=== PATIENT | male | born 1930 | race Caucasian/White ===

== ENCOUNTER 2019-08-20 12:46 | Inpatient (IN) | payer MEDICARE ==
[2019-08-20] MEDS ORDERED: methylPREDNISolone Sod Succ/PF 125 MG/2 ML VIAL ONE (13:04)
[2019-08-20] MEDS ORDERED: Albuterol Sulfate 2.5 mg/0.5 ml Neb ONE ×2 (13:08)
[2019-08-20 13:19] LABS: #Lymphocytes 0.6 thou/uL (1.20-3.40); #Monocytes 0.6 thou/uL (0.11-0.59); #Neutrophils 4.7 thou/uL (1.40-6.50); %Basophils 0.2 % (0.0-1.0); %Eosinophils 0.2 % (0.0-10.0); %Lymphocytes 10.5 % (21.0-51.0); %Monocytes 9.4 % (0.0-10.0); %Neutrophils 79.6 % (42.0-75.0); Hemoglobin 10.7 g/dL (14.0-18.0); Mean Corpuscular HGB CONC 34.3 g/dL (32.0-36.0); Mean Corpuscular Hemoglobin 35.7 pg (27.0-31.0); Mean Platelet Volume 6.2 fL (7.4-10.4); Platelet Count 175 thou/uL (130-400); RBC Distribution Width 13.2 % (11.5-14.5); White Blood Cell (WBC) Count 5.9 thou/uL (4.8-10.8)
--- NOTE | 2019-08-20 13:31 | RAD ---
XR Chest 1 View Portable History: Dyspnea Comparison: Radiograph February 2017 Findings: Heart size is enlarged. There are airspace opacities in the right middle lobe and right low er lobe. No pneumothorax. Impression: Findings concerning for multifocal right lower lobe pneumonia.
[2019-08-20 13:34] LABS: ALT (SGPT) 48 U/L (8-55); AST (SGOT) 45 U/L (5-34); Albumin 3.8 g/dL (3.4-4.8); Alkaline Phosphatase 91 U/L (40-110); Anion Gap 16 mmol/L (10-20); BUN (Urea Nitrogen) 38 mg/dL (8.4-25.7); Bilirubin, Total 1.2 mg/dL (0.2-1.2); Calc. Creatinine Clearance 0 mL/min (70-130); Calcium 8.8 mg/dL (7.8-10.44); Carbon Dioxide 23 mmol/L (23-31); Chloride 100 mmol/L (98-107); Estimated GFR-MDRD 28; Globulin 2.8 g/dL (2.4-3.5); Glucose 108 mg/dL (83-110); Potassium 4.7 mmol/L (3.5-5.1); Protein, Total 6.6 g/dL (5.8-8.1); Sodium 134 mmol/L (136-145)
[2019-08-20] MEDS ORDERED: cefTRIAXone\\ROCEPHIN 2 GM VIAL ONE (13:40)
[2019-08-20] MEDS ORDERED: Sodium Chloride 0.9% 100 ML ONE (13:40)
[2019-08-20] MEDS ORDERED: Azithromycin 500 MG VIAL ONE (13:52)
[2019-08-20 14:01] LABS: CKMB 2.6 ng/mL (0-6.6)
[2019-08-20] MEDS ORDERED: Bisacodyl 10 MG SUPP PR PRN (14:56)
[2019-08-20] MEDS ORDERED: Acetaminophen 325 MG TAB PO PRN (14:56)
[2019-08-20] MEDS ORDERED: Acetaminophen 500 MG TAB ONE (15:26)
--- NOTE | 2019-08-20 15:30 | HP ---
REASON FOR ADMISSION: COPD exacerbation, pneumonia, acute kidney injury, possible CHF exacerbation. HISTORY OF PRESENTING ILLNESS: The patient gives history of shortness of breath from last 3 days. This has been progressively getting worse. Around 4:00 in the morning, it got to the point where he could not tolerate, hence called EMS and was brought here. He has cough with expectoration of yellowish green sputum. He normally ambulates by himself. He does all his activities of daily living and takes care of his in [place]. He follows up with radiographer mammographer in [facility]. His primary care physician is Dr. Gomez in [facility] in [place]. He normally takes two nebulizations and does not use home oxygen. No fever at home, but had a temperature of 99.5 here. No prior history of heart failure as far as he knows. 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 CURRENT MEDICATIONS: The patient is on, 1. DuoNebs twice daily. 2. Omeprazole 40 mg daily. 3. Propranolol 20 mg 3 times daily. 4. Synthroid 150 mcg p.o. daily. 5. Probiotic one capsule daily. 6. Plaquenil 200 mg daily. 7. Vitamin D3 2000 units p.o. daily. 8. Atorvastatin 80 mg p.o. at bedtime. 9. Aspirin 81 mg p.o. at bedtime. 10. Norvasc 10 mg p.o. daily. 11. Allopurinol 100 mg p.o. daily. 12. Albuterol inhaler q.6 hourly p.r.n. ALLERGIES: NO KNOWN DRUG ALLERGIES. PERSONAL HISTORY: Quit smoking more than 20 years ago, but has smoked 1 to 2 packs a day for almost 40 years before that. Does not abuse alcohol or drugs. Lives with his in [place]. FAMILY HISTORY: Mother at the age of 71 years. She has had history of breast cancer and also female cancer as far as he knows. Father at the age of 86 years. He of natural causes. CODE STATUS: The patient wants one time CPR to be done on him including intubation. Power of pharmacy innovation assistant is his son, Mr. Kike Stephen. REVIEW OF SYSTEMS: CONSTITUTIONAL: Negative for weight loss or gain, ability to conduct usual activities. SKIN: Negative for rash, itching. EYES: Negative for double vision, pain. ENT/MOUTH: Negative for nose bleeding, neck stiffness, pain, tenderness. CARDIOVASCULAR: Negative for palpitations, dyspnea on exertion, orthopnea. RESPIRATORY: Negative for shortness of breath, wheezing, cough, hemoptysis, fever or night sweats. GASTROINTESTINAL: Negative for poor appetite, abdominal pain, heartburn, nausea , vomiting, constipation, or diarrhea. GENITOURINARY: Negative for urgency, frequency, dysuria, nocturia. MUSCULOSKELETAL: Negative for pain, swelling. NEUROLOGIC/PSYCHIATRIC: Negative for anxiety, depression. ALLERGY/IMMUNOLOGIC: Negative for skin rash, bleeding tendency. PHYSICAL EXAMINATION: GENERAL: The patient is an 88-year-old male, who is currently not in any acute distress. VITAL SIGNS: Blood pressure 124/66, pulse 84 per minute, respiratory rate 20 per minute, temperature 99.5 degrees Fahrenheit, saturating 86% on 2 L and 92% on 4 L nasal cannula. NECK: Supple. No elevated JVD. HEENT: Eyes, extraocular muscles intact. Pupils are reacting to light. Oral cavity, mucous membranes are dry. No exudates or congestion. CARDIOVASCULAR SYSTEM: S1 and S2 heard. Regular rhythm. RESPIRATORY: Air entry 1+ bilateral. Scattered wheezes plus bilateral. ABDOMEN: Soft. Bowel sounds heard. No tenderness, rigidity, or guarding. EXTREMITIES: No peripheral edema or calf tenderness. VASCULAR SYSTEM: Peripheral pulses 1+ bilateral. No ischemic ulcerations or gangrene. CENTRAL NERVOUS SYSTEM: No gross focal deficits noted. The patient is alert, awake, and oriented well. PSYCHIATRIC SYSTEM: The patient's mood is euthymic. No hallucinations or delusions. LABORATORY DATA: EKG done shows normal sinus rhythm at 83 beats per minute. There is LBBB seen. Corrected QT is 533 milliseconds. QRS duration is 184 milliseconds. Chest x-ray done shows patchy right-sided infiltrate. He likely has biventricular pacer. White count of 5, H and H 10 and 31, platelet count 175, MCV is 104 with 79% neutrophils. D-dimer is 2.3. Sodium 134, BUN 38, creatinine 2.2, serum bicarb 23. Troponin I 0.3. BNP is 1079. CK-MB 2.6. Influenza A and B antigens are negative. Albumin is 3.8. CLINICAL IMPRESSION AND PLAN: The patient will be admitted to telemetry for acute on chronic COPD exacerbation, acute respiratory failure with hypoxia, possible congestive heart failure exacerbation with right heart failure. The patient has prior history of right nephrectomy and his creatinine is around 2. We will place him on ceftriaxone and Zithromax. Echo with 2D Doppler for LV function. We will continue aspirin, allopurinol, Plaquenil, omeprazole, propranolol, as before along with Synthroid. He will be on steroids and DuoNebs. We will obtain Cardiology consultation with Dr. Uribe. If the patient's clinical situation gets worse , we will request Pulmonology consultation as well. We will continue to closely monitor him on telemetry. Job ID: [id number] [facility]
[2019-08-20 16:20] LABS: Troponin I 0.392 ng/mL (< 0.028)
[2019-08-20] MEDS: Propranolol HCl 20 MG TAB PO SCH ×2 (16:35→20:15)
[2019-08-20 18:08] VITALS: BMI 25.8
[2019-08-20 19:48] LABS: Critical Call Chem Troponin I RESULT DECREASING
[2019-08-20] MEDS: Atorvastatin Calcium 40 MG TAB PO SCH (20:15)
[2019-08-20] MEDS: methylPREDNISolone Sod Succ 40 MG VIAL IVP SCH (21:21)
[2019-08-21 04:56] LABS: #Lymphocytes 0.7 thou/uL (1.20-3.40); #Monocytes 0.2 thou/uL (0.11-0.59); #Neutrophils 3.2 thou/uL (1.40-6.50); %Eosinophils 0.2 % (0.0-10.0); %Lymphocytes 16.6 % (21.0-51.0); %Monocytes 4.9 % (0.0-10.0); %Neutrophils 78.4 % (42.0-75.0); Hemoglobin 10.1 g/dL (14.0-18.0); Mean Corpuscular HGB CONC 33.2 g/dL (32.0-36.0); Mean Corpuscular Hemoglobin 34.6 pg (27.0-31.0); Mean Platelet Volume 6.6 fL (7.4-10.4); Platelet Count 162 thou/uL (130-400); RBC Distribution Width 13.1 % (11.5-14.5); Red Blood Cell (RBC) Count 2.92 mill/uL (4.70-6.10); White Blood Cell (WBC) Count 4.1 thou/uL (4.8-10.8)
[2019-08-21 05:22] LABS: Albumin 3.5 g/dL (3.4-4.8); Anion Gap 14 mmol/L (10-20); BUN (Urea Nitrogen) 44 mg/dL (8.4-25.7); BUN/Creatinine Ratio 21.46; Calc. Creatinine Clearance 29 mL/min (70-130); Calcium 8.6 mg/dL (7.8-10.44); Carbon Dioxide 24 mmol/L (23-31); Chloride 104 mmol/L (98-107); Estimated GFR-MDRD 31; Glucose 171 mg/dL (83-110); Phosphorus 4.4 mg/dL (2.3-4.7); Potassium 4.2 mmol/L (3.5-5.1); Sodium 138 mmol/L (136-145)
[2019-08-21] MEDS: methylPREDNISolone Sod Succ 40 MG VIAL IVP SCH ×3 (05:45→23:34)
[2019-08-21] MEDS: Levothyroxine 150 MCG TAB PO SCH (05:45)
[2019-08-21] MEDS: Hydroxychloroquine Sulfate 200 MG TAB PO SCH (08:34)
[2019-08-21] MEDS: Allopurinol 100 MG TAB PO SCH (08:34)
[2019-08-21] MEDS: Enoxaparin Sodium 30 MG/0.3 ML SYRINGE SC SCH (08:34)
[2019-08-21] MEDS: Aspirin 81 mg Enteric Coated Tablet PO SCH (08:35)
[2019-08-21] MEDS: Propranolol HCl 20 MG TAB PO SCH (08:35)
[2019-08-21] MEDS ORDERED: Non-Formulary Item 1 EACH (Omeprazole [Omeprazole] 40 MG) PO SCH (09:00)
--- NOTE | 2019-08-21 09:14 | PRG ---
DATE OF SERVICE: 08/21/2019 SUBJECTIVE: The patient seen at bedside. He is feeling better than before, admitted with shortness of breath and left-sided chest pain, off and on. As per the patient, he was using oxygen at home, but from last 1 year, has been removed from oxygen. Has a known case of COPD. Denies any heart history other than aneurysm repair. As per the patient, currently, he feels better. Has wheezing. Denies headache or dizziness. Denies any swelling of the feet. Denies nausea or vomiting. OBJECTIVE: VITAL SIGNS: Oxygen saturation 93% on 3 L nasal cannula, blood pressure 113/60, temperature 97.6, pulse 71, respirations 18. GENERAL: The patient lying in bed comfortably, not in any distress. HEENT: Conjunctivae are normal. CHEST: Vesicular breathing, prolonged expiration. Bilateral rhonchi present. Decreased air entry in right lower lung field. HEART: Sounds normal. ABDOMEN: Soft, benign. No tenderness or visceromegaly. EXTREMITIES: Negative edema of feet. No rash. No cyanosis. LABORATORY DATA: CBC unremarkable except hemoglobin 10.1. D-dimer 2.30. BMP unremarkable except creatinine 2.05. Troponin 0.331, 0.392, 0.370. CK-MB 226. Lactic acid 1.3. ProBNP 1079. Blood culture pending. Influenza A and B antigen negative. IMPRESSION: 1. Acute on chronic hypoxemic respiratory failure secondary to chronic obstructive pulmonary disease exacerbation and right lower lung pneumonia, possible acute congestive heart failure. Continue steroids, nebulization, antibiotics. Azithromycin is discontinued due to prolonged QTc, which is 598. The patient currently feeling better. We will continue oxygen and wean as tolerated. Follow up blood culture, currently negative. 2. Right lower lung pneumonia. Continue ceftriaxone. Azithromycin is discontinued due to prolonged QTc. The patient has normal white blood cells. Continue to monitor clinically. 3. Possible acute congestive heart failure. No previous echo in the system. Cardiology has been consulted. The patient currently has no edema of feet. We will follow up Cardiology if the patient needed any diuretics. 4. Positive troponins, possible demand supply mismatch. The patient has intermittent chest pains, also questionable ST-T depression in lateral leads. Follow up Cardiology for further recommendation. 5. Acute kidney injury with baseline chronic kidney disease stage 3. Monitor BMP in the morning. 6. History of aortic aneurysm repair. 7. Deep venous thrombosis and gastrointestinal prophylaxis. PLAN: Discussed with the patient and nursing staff. Job ID: [id number]
--- NOTE | 2019-08-21 10:18 | NM ---
VQ SCAN: CLINICAL HISTORY: Elevated D-dimer. RADIOPHARMACEUTICAL: 11.5 mCi xenon inhaled, 5.5 mCi technetium 99 MAA IV. COMPARISON: Reference made to previous day's chest radiograph. FINDINGS: The ventilation portion of the exam reveals homogeneous distribution without significant retention. N o significant moderate or large perfusion defects are demonstrated. IMPRESSION: 1. Normal VQ scan. 2. No scintigraphic evidence of pulmonary embolus. Transcribed Date/Time: 08/21/2019 10:27 AM
[2019-08-21] MEDS: cefTRIAXone\\ROCEPHIN 1 GM in Sodium Chloride 0.9% 100 ML IVPB SCH (12:15)
[2019-08-21] MEDS ORDERED: Furosemide 20 MG/2 ML VIAL SLOW IVP SCH (13:45)
[2019-08-21] MEDS ORDERED: Azithromycin 500 MG in Sodium Chloride 0.9% 250 ML 250 ML IVPB SCH (14:00)
[2019-08-21] MEDS: hydrALAZINE 10 MG TAB PO SCH ×2 (14:11→19:57)
--- NOTE | 2019-08-21 14:55 | CON ---
DATE OF CONSULTATION: HISTORY OF PRESENT ILLNESS: The patient is an unfortunate 88-year-old gentleman , who presents for evaluation of dyspnea. The patient has no previous cardiac history. He does have a history of an abdominal aortic aneurysm, underwent surgery. The patient presents with increasing dyspnea. He reports having chills. He was admitted for further evaluation. The patient reports having also intermittent left-sided chest discomfort. He says that with this, it is worse when he takes a deep breath and tender to palpation. PAST MEDICAL HISTORY: 1. History of pneumonia. 2. Aortic aneurysm. 3. Hypertension. 4. Chronic renal insufficiency. 5. COPD. 6. Dyslipidemia. PAST SURGICAL HISTORY: Nephrectomy, abdominal aortic aneurysm surgery, back surgery, prostate surgery, and neck surgery. SOCIAL HISTORY: He is a former smoker. FAMILY HISTORY: Positive family history of heart disease. ALLERGIES: NO KNOWN DRUG ALLERGIES. MEDICATIONS: See nursing list. REVIEW OF SYSTEMS: Ten-point system otherwise unremarkable. PHYSICAL EXAMINATION: GENERAL: This is a well-developed gentleman, in mild distress. VITAL SIGNS: Blood pressure 105/56. NECK: Showed no jugular venous distention. LUNGS: Have wheezes in both bases, bilateral wheezes. HEART: Regular rate and rhythm. Normal S1 and S2 with a 2/6 systolic murmur. ABDOMEN: Distended. EXTREMITIES: Showed no edema. VASCULAR: Radial pulses 2+. LABORATORY DATA: Sodium 138, potassium 4.2, chloride 104, bicarbonate 24, BUN 44, and creatinine 2.0. His white blood cell count is 4.1, hemoglobin 10.1, hematocrit 30.4, and his platelets are 162. His troponin was 0.37. His BNP was 1079. There is no EKG on the chart, we will order an EKG. Chest x-ray revealed cardiomegaly with a possible right-sided infiltrate, right lower lobe infiltrate. Echocardiogram revealed severe decreased left ventricular ejection fraction of 25% to 30%, with severe mitral regurgitation. IMPRESSION AND PLAN: 1. Congestive heart failure. 2. Cardiomyopathy. 3. History of aortic aneurysm. 4. Chronic renal insufficiency. 5. History of nephrectomy. 6. Hypertension. 7. Dyslipidemia. This unfortunate gentleman, presents with congestive heart failure and possible pneumonia with his advanced age and history of nephrectomy with chronic renal insufficiency, we would recommend medical therapy. We will add hydralazine. We will try the low-dose Coreg to see if the patient can tolerate this medication instead of propranolol. We will add hydralazine. We will perform a Lexiscan stress test to make sure there is no evidence of significant ischemia. We will follow this patient with you through his hospitalization. Job ID: [id number] [facility]
[2019-08-21] MEDS: Carvedilol 3.125 MG TAB PO SCH (16:18)
[2019-08-21] MEDS: Gabapentin 300 MG CAP PO SCH (19:56)
[2019-08-21] MEDS: Atorvastatin Calcium 40 MG TAB PO SCH (19:57)
[2019-08-22] MEDS: Levothyroxine 150 MCG TAB PO SCH (04:50)
[2019-08-22 04:59] LABS: #Lymphocytes 0.7 thou/uL (1.20-3.40); #Monocytes 0.3 thou/uL (0.11-0.59); #Neutrophils 8.6 thou/uL (1.40-6.50); %Basophils 0.1 % (0.0-1.0); %Eosinophils 0.2 % (0.0-10.0); %Lymphocytes 7.5 % (21.0-51.0); %Monocytes 3.3 % (0.0-10.0); %Neutrophils 88.9 % (42.0-75.0); Hemoglobin 10.6 g/dL (14.0-18.0); Mean Corpuscular HGB CONC 33.1 g/dL (32.0-36.0); Mean Corpuscular Hemoglobin 34.7 pg (27.0-31.0); Mean Platelet Volume 6.7 fL (7.4-10.4); Platelet Count 165 thou/uL (130-400); RBC Distribution Width 13.2 % (11.5-14.5); Red Blood Cell (RBC) Count 3.04 mill/uL (4.70-6.10); White Blood Cell (WBC) Count 9.7 thou/uL (4.8-10.8)
[2019-08-22] MEDS ORDERED: Lidocaine 2% Viscous Solution 10 ML, Aluminum & Magnesium Hydroxide 30 ML SSW SCH (05:00)
[2019-08-22 05:16] LABS: ALT (SGPT) 120 U/L (8-55); AST (SGOT) 113 U/L (5-34); Albumin 3.5 g/dL (3.4-4.8); Alkaline Phosphatase 107 U/L (40-110); Anion Gap 16 mmol/L (10-20); BUN (Urea Nitrogen) 49 mg/dL (8.4-25.7); Bilirubin, Total 0.5 mg/dL (0.2-1.2); Calc. Creatinine Clearance 28 mL/min (70-130); Calcium 8.5 mg/dL (7.8-10.44); Carbon Dioxide 19 mmol/L (23-31); Chloride 106 mmol/L (98-107); Estimated GFR-MDRD 32; Globulin 2.7 g/dL (2.4-3.5); Glucose 179 mg/dL (83-110); Potassium 4.4 mmol/L (3.5-5.1); Protein, Total 6.2 g/dL (5.8-8.1); Sodium 137 mmol/L (136-145)
[2019-08-22] MEDS: methylPREDNISolone Sod Succ 40 MG VIAL IVP SCH ×3 (06:24→21:18)
[2019-08-22] MEDS: hydrALAZINE 10 MG TAB PO SCH ×3 (08:33→21:17)
[2019-08-22] MEDS: Aspirin 81 mg Enteric Coated Tablet PO SCH (08:33)
[2019-08-22] MEDS: Gabapentin 300 MG CAP PO SCH ×2 (08:34→21:17)
[2019-08-22] MEDS: Allopurinol 100 MG TAB PO SCH (08:34)
[2019-08-22] MEDS: Carvedilol 3.125 MG TAB PO SCH ×2 (08:35→18:05)
[2019-08-22] MEDS: Hydroxychloroquine Sulfate 200 MG TAB PO SCH (08:35)
[2019-08-22] MEDS: Enoxaparin Sodium 30 MG/0.3 ML SYRINGE SC SCH (08:43)
[2019-08-22] MEDS ORDERED: Sodium Chloride 0.9% 10 ML ONE (12:44)
[2019-08-22] MEDS: cefTRIAXone\\ROCEPHIN 1 GM in Sodium Chloride 0.9% 100 ML IVPB SCH (12:57)
[2019-08-22] MEDS: Isosorbide Dinitrate 5 MG TAB PO SCH ×2 (16:30→21:18)
[2019-08-22] MEDS: Senokot S 8.6-50 MG TAB PO PRN (18:25)
--- NOTE | 2019-08-22 18:41 | PDOC.HOSPP ---
- Subjective Encounter Date: 08/22/19 Encounter Time: 10:30 Subjective: pt up in bed feels well today - Objective Vital Signs & Weight: Vital Signs (12 hours) Temp Pulse Resp BP BP Pulse Ox 08/22/19 16:29 81 119/62 08/22/19 16:00 97.4 F L 81 18 109/57 L 96 08/22/19 14:28 75 16 08/22/19 11:44 97.8 F 75 15 138/63 96 08/22/19 10:58 74 16 08/22/19 08:33 72 120/60 08/22/19 08:00 98.4 F 72 18 120/60 97 08/22/19 07:35 96 08/22/19 07:32 69 16 96 Weight Weight 164 lb 11.2 oz I&O: 08/21/19 08/22/19 08/23/19 06:59 06:59 06:59 Intake Total 1310 1320 Output Total 2150 850 Balance -840 470 Result Diagrams: 08/22/19 04:43 08/22/19 04:43 Hospitalist ROS - Review of Systems Cardiovascular: denies: chest pain, palpitations, orthopnea, paroxysmal noc. dyspnea, edema, light headedness, other Gastrointestinal: denies: nausea, vomiting, abdominal pain, diarrhea, constipation, melena, hematochezia, other Genitourinary: denies: dysuria, frequency, incontinence, hematuria, retention, other - Medication Medications: Active Medications Generic Name Dose Route Start Last Admin Trade Name Freq PRN Reason Stop Dose Admin Albuterol/Ipratropium 3 ml 08/20/19 15:00 08/22/19 14:28 Duoneb NEB 3 ml [id number] LEO Administration Allopurinol 100 mg 08/21/19 09:00 08/22/19 08:34 Zyloprim PO 100 mg DAILY LEO Administration Aspirin 81 mg 08/21/19 09:00 08/22/19 08:33 Ecotrin PO 81 mg DAILY LEO Administration Atorvastatin Calcium 80 mg 08/20/19 21:00 08/21/19 19:57 Lipitor PO 80 mg HS LEO Administration Carvedilol 3.125 mg 08/22/19 17:00 08/22/19 18:05 Coreg PO 3.125 mg BID-WM LEO Administration Cholecalciferol 2,000 units 08/21/19 09:00 08/22/19 08:35 Vitamin D3 PO 2,000 units DAILY [facility] Administration Enoxaparin Sodium 30 mg 08/21/19 09:00 08/22/19 08:43 Lovenox SC 30 mg 0900 LEO Administration Gabapentin 600 mg 08/21/19 21:00 08/22/19 08:34 Neurontin PO 600 mg BID LEO Administration Hydralazine HCl 10 mg 08/21/19 15:00 08/22/19 16:29 Apresoline PO 10 mg TID LEO Administration Hydroxychloroquine Sulfate 200 mg 08/21/19 09:00 08/22/19 08:35 Plaquenil PO 200 mg DAILY [facility] Administration Ceftriaxone Sodium 1 gm/ 100 mls @ 200 mls/hr 08/21/19 13:00 08/22/19 12:57 Sodium Chloride IVPB 100 mls Q24HR LEO Administration Isosorbide Dinitrate 10 mg 08/22/19 15:00 08/22/19 16:30 Isordil PO 10 mg TID [facility] Administration Levothyroxine Sodium 150 mcg 08/21/19 06:00 08/22/19 04:50 Synthroid PO 150 mcg 0600 [facility] Administration Methylprednisolone Sodium Succinate 20 mg 08/20/19 22:00 08/22/19 13:36 Solu-Medrol IVP 20 mg Q8HR [facility] Administration Senna/Docusate Sodium 2 tab 08/20/19 14:56 08/22/19 18:25 Senokot S PO 2 tab BIDPRN PRN Administration Constipation - Exam Heart: negative: RRR, no murmur, no gallops, no rubs, normal peripheral pulses, irregular, diminshed peripheral pulses, murmur present, II/IV, III/IV Respiratory: rales, rhonchi Gastrointestinal: negative: soft, non-tender, non-distended, normal bowel sounds , no palpable masses, no hepatomegaly, no splenomegaly, no bruit, no guarding, no rigidity, tender to palpation, distended, diminished bowl sounds, voluntary guarding Extremities: negative: no cyanosis, no clubbing, no edema, 1+ LE edema, 2+ LE edema, clubbing Hosp A/P (1) Acute respiratory failure with hypoxia Code(s): J96.01 - ACUTE RESPIRATORY FAILURE WITH HYPOXIA Status: Acute (2) Systolic heart failure Code(s): I50.20 - UNSPECIFIED SYSTOLIC (CONGESTIVE) HEART FAILURE Status: Acute (3) Pneumonia Code(s): J18.9 - PNEUMONIA, UNSPECIFIED ORGANISM Status: Acute (4) KENZIE (acute kidney injury) Code(s): N17.9 - ACUTE KIDNEY FAILURE, UNSPECIFIED Status: Acute (5) COPD exacerbation Code(s): J44.1 - CHRONIC OBSTRUCTIVE PULMONARY DISEASE W (ACUTE) EXACERBATION Status: Acute - Plan will continue abx for now, his ef is low he is on HF meds. will undergo stress test per cardiology's notes. pt is being weaned off oxygen.
[2019-08-22] MEDS: Guaifenesin DM 100-10/5 ML UDCUP PO PRN (21:16)
[2019-08-22] MEDS: Atorvastatin Calcium 40 MG TAB PO SCH (21:17)
[2019-08-23] MEDS: Levothyroxine 150 MCG TAB PO SCH (06:04)
[2019-08-23] MEDS: methylPREDNISolone Sod Succ 40 MG VIAL IVP SCH (06:04)
--- NOTE | 2019-08-23 12:05 | NM ---
Myocardial perfusion scan with SPECT imaging HISTORY: Cardiomyopathy COMPARISON: None. FINDINGS: Examination was done using 29 mCi 90 9M technetium sestamibi on the stress and 10.1 mCi on the resting images. This shows a small area of apical scar. No ischemic change. Wall motion: There is a global hypokinesis noted. Left ventricular ejection fraction: The calculated left ventricular ejection fraction was 30%. IMPRESSION: 1. No evidence of ischemia. 2. Global hypokinesis with a diminished left ventricular ejection fraction of 30%
[2019-08-23] MEDS: Hydroxychloroquine Sulfate 200 MG TAB PO SCH (12:10)
[2019-08-23] MEDS: Isosorbide Dinitrate 5 MG TAB PO SCH ×3 (12:10→19:27)
[2019-08-23] MEDS: hydrALAZINE 10 MG TAB PO SCH ×3 (12:12→19:28)
[2019-08-23] MEDS: Aspirin 81 mg Enteric Coated Tablet PO SCH (12:12)
[2019-08-23] MEDS: Gabapentin 300 MG CAP PO SCH ×2 (12:14→19:27)
[2019-08-23] MEDS: Spironolactone 25 MG TAB PO SCH (12:15)
[2019-08-23] MEDS: Enoxaparin Sodium 30 MG/0.3 ML SYRINGE SC SCH (12:16)
[2019-08-23] MEDS: Allopurinol 100 MG TAB PO SCH (12:16)
[2019-08-23] MEDS: Carvedilol 3.125 MG TAB PO SCH ×2 (12:24→17:29)
[2019-08-23] MEDS: cefTRIAXone\\ROCEPHIN 1 GM in Sodium Chloride 0.9% 100 ML IVPB SCH (12:25)
[2019-08-23] MEDS: Senokot S 8.6-50 MG TAB PO PRN (12:26)
[2019-08-23 13:07] LABS: Anion Gap 15 mmol/L (10-20); BUN (Urea Nitrogen) 45 mg/dL (8.4-25.7); Calc. Creatinine Clearance 36 mL/min (70-130); Carbon Dioxide 24 mmol/L (23-31); Chloride 106 mmol/L (98-107); Estimated GFR-MDRD 43; Glucose 208 mg/dL (83-110); Sodium 141 mmol/L (136-145)
[2019-08-23] MEDS ORDERED: Furosemide 20 MG/2 ML VIAL SLOW IVP SCH (14:00)
[2019-08-23] MEDS ORDERED: Regadenoson 0.4 MG/5 ML SYRINGE ONE (14:52)
--- NOTE | 2019-08-23 18:41 | PDOC.HOSPP ---
- Subjective Encounter Date: 08/23/19 Encounter Time: 17:00 Subjective: pt up in bed feels well today - Objective Vital Signs & Weight: Vital Signs (12 hours) Temp Pulse Resp BP BP Pulse Ox 08/23/19 17:25 70 113/56 L 08/23/19 15:52 98.6 F 67 16 110/58 L 92 L 08/23/19 14:23 70 18 08/23/19 12:12 74 08/23/19 08:00 96.2 F L 74 16 119/56 L 96 08/23/19 07:03 93 L 08/23/19 07:01 63 16 93 L Weight Weight 164 lb 9.6 oz I&O: 08/22/19 08/23/19 08/24/19 06:59 06:59 06:59 Intake Total 1310 1770 Output Total 2150 2150 Balance -840 -380 Result Diagrams: 08/22/19 04:43 08/23/19 12:34 Hospitalist ROS - Review of Systems Cardiovascular: denies: chest pain, palpitations, orthopnea, paroxysmal noc. dyspnea, edema, light headedness, other Gastrointestinal: denies: nausea, vomiting, abdominal pain, diarrhea, constipation, melena, hematochezia, other Genitourinary: denies: dysuria, frequency, incontinence, hematuria, retention, other - Medication Medications: Active Medications Generic Name Dose Route Start Last Admin Trade Name Freq PRN Reason Stop Dose Admin Albuterol/Ipratropium 3 ml 08/20/19 15:00 08/23/19 14:23 Duoneb NEB 3 ml [id number] LEO Administration Allopurinol 100 mg 08/21/19 09:00 08/23/19 12:16 Zyloprim PO 100 mg DAILY LEO Administration Aspirin 81 mg 08/21/19 09:00 08/23/19 12:12 Ecotrin PO 81 mg DAILY LEO Administration Atorvastatin Calcium 80 mg 08/20/19 21:00 08/22/19 21:17 Lipitor PO 80 mg HS LEO Administration Carvedilol 3.125 mg 08/22/19 17:00 08/23/19 17:29 Coreg PO 3.125 mg BID-WM LEO Administration Cholecalciferol 2,000 units 08/21/19 09:00 08/23/19 12:16 Vitamin D3 PO 2,000 units DAILY LEO Administration Enoxaparin Sodium 30 mg 08/21/19 09:00 08/23/19 12:16 Lovenox SC 30 mg 0900 LEO Administration Gabapentin 600 mg 08/21/19 21:00 08/23/19 12:14 Neurontin PO 600 mg BID LEO Administration Guaifenesin/Dextromethorphan 15 ml 08/20/19 14:56 08/22/19 21:16 Robitussin Dm PO 15 ml Q4H PRN Administration Cough Hydralazine HCl 25 mg 08/23/19 09:00 08/23/19 17:25 Apresoline PO 25 mg TID LEO Administration Hydroxychloroquine Sulfate 200 mg 08/21/19 09:00 08/23/19 12:10 Plaquenil PO 200 mg DAILY LEO Administration Ceftriaxone Sodium 1 gm/ 100 mls @ 200 mls/hr 08/21/19 13:00 08/23/19 12:25 Sodium Chloride IVPB 100 mls Q24HR LEO Administration Isosorbide Dinitrate 10 mg 08/22/19 15:00 08/23/19 17:28 Isordil PO 10 mg TID LEO Administration Levothyroxine Sodium 150 mcg 08/21/19 06:00 08/23/19 06:04 Synthroid PO 150 mcg 0600 LEO Administration Senna/Docusate Sodium 2 tab 08/20/19 14:56 08/23/19 12:26 Senokot S PO 2 tab BIDPRN PRN Administration Constipation Sodium Chloride 10 ml 08/23/19 09:00 08/23/19 12:17 Flush - Normal Saline IVF 10 ml Q12HR LEO Administration Spironolactone 25 mg 08/23/19 08:00 08/23/19 12:15 Aldactone PO 25 mg QAM-WM LEO Administration - Exam Neck: negative: supple, symmetric, no JVD, no thyromegaly, no lymphadenopathy, no carotid bruit, JVD Heart: negative: RRR, no murmur, no gallops, no rubs, normal peripheral pulses, irregular, diminshed peripheral pulses, murmur present, II/IV, III/IV Respiratory: negative: CTAB, no wheezes, no rales, no ronchi, normal chest expansion, no tachypnea, normal percussion, rales, rhonchi, tachypneic, wheezes Hosp A/P (1) Acute respiratory failure with hypoxia Code(s): J96.01 - ACUTE RESPIRATORY FAILURE WITH HYPOXIA Status: Acute (2) Systolic heart failure Code(s): I50.20 - UNSPECIFIED SYSTOLIC (CONGESTIVE) HEART FAILURE Status: Acute (3) Pneumonia Code(s): J18.9 - PNEUMONIA, UNSPECIFIED ORGANISM Status: Acute (4) KENZIE (acute kidney injury) Code(s): N17.9 - ACUTE KIDNEY FAILURE, UNSPECIFIED Status: Acute Plan: hx os nephrectomy (5) COPD exacerbation Code(s): J44.1 - CHRONIC OBSTRUCTIVE PULMONARY DISEASE W (ACUTE) EXACERBATION Status: Acute - Plan will continue abx for now, his ef is low he is on HF meds. will undergo stress test per cardiology's notes. pt is being weaned off oxygen. 08/23 pt is off oxygen and feels well. Daughter updated. pt's stress test global hypokinesis. He is on hf meds. possible discharge home in am if ok with cardiology.
[2019-08-23] MEDS: Atorvastatin Calcium 40 MG TAB PO SCH (19:27)
[2019-08-23] MEDS: Guaifenesin DM 100-10/5 ML UDCUP PO PRN (19:27)
[2019-08-24 05:14] LABS: #Lymphocytes 1.5 thou/uL (1.20-3.40); #Monocytes 0.6 thou/uL (0.11-0.59); #Neutrophils 4.7 thou/uL (1.40-6.50); %Eosinophils 0.2 % (0.0-10.0); %Lymphocytes 22.3 % (21.0-51.0); %Neutrophils 68.6 % (42.0-75.0); Hemoglobin 9.5 g/dL (14.0-18.0); Mean Corpuscular HGB CONC 33.7 g/dL (32.0-36.0); Mean Corpuscular Hemoglobin 35.1 pg (27.0-31.0); Mean Platelet Volume 6.5 fL (7.4-10.4); Platelet Count 191 thou/uL (130-400); RBC Distribution Width 13.2 % (11.5-14.5); Red Blood Cell (RBC) Count 2.71 mill/uL (4.70-6.10); White Blood Cell (WBC) Count 6.9 thou/uL (4.8-10.8)
[2019-08-24 05:36] LABS: ALT (SGPT) 74 U/L (8-55); AST (SGOT) 39 U/L (5-34); Albumin 3.3 g/dL (3.4-4.8); Alkaline Phosphatase 78 U/L (40-110); Anion Gap 12 mmol/L (10-20); BUN (Urea Nitrogen) 43 mg/dL (8.4-25.7); Bilirubin, Direct 0.3 mg/dL (0.1-0.3); Bilirubin, Total 0.5 mg/dL (0.2-1.2); Calc. Creatinine Clearance 36 mL/min (70-130); Calcium 8.7 mg/dL (7.8-10.44); Carbon Dioxide 27 mmol/L (23-31); Chloride 107 mmol/L (98-107); Estimated GFR-MDRD 43; Glucose 105 mg/dL (83-110); Potassium 4.1 mmol/L (3.5-5.1); Protein, Total 5.3 g/dL (5.8-8.1); Sodium 142 mmol/L (136-145)
[2019-08-24] MEDS: Levothyroxine 150 MCG TAB PO SCH (05:52)
[2019-08-24] MEDS ORDERED: predniSONE 20 MG TAB PO SCH (08:00)
[2019-08-24] MEDS ORDERED: Carvedilol 3.125 MG TAB PO SCH (08:26)
[2019-08-24] MEDS ORDERED: Carvedilol 6.25 MG TAB PO SCH ×2 (08:30→17:00)
[2019-08-24] MEDS: Hydroxychloroquine Sulfate 200 MG TAB PO SCH (08:45)
[2019-08-24] MEDS: Enoxaparin Sodium 30 MG/0.3 ML SYRINGE SC SCH (08:45)
[2019-08-24] MEDS: Isosorbide Dinitrate 5 MG TAB PO SCH ×2 (08:46→14:03)
[2019-08-24] MEDS: Spironolactone 25 MG TAB PO SCH (08:46)
[2019-08-24] MEDS: hydrALAZINE 10 MG TAB PO SCH ×2 (08:46→14:03)
[2019-08-24] MEDS: Allopurinol 100 MG TAB PO SCH (08:46)
[2019-08-24] MEDS: Gabapentin 300 MG CAP PO SCH (08:47)
[2019-08-24] MEDS: Aspirin 81 mg Enteric Coated Tablet PO SCH (08:47)
[2019-08-24] MEDS: Carvedilol 3.125 MG TAB PO SCH (09:24)
[2019-08-24] MEDS: cefTRIAXone\\ROCEPHIN 1 GM in Sodium Chloride 0.9% 100 ML IVPB SCH (14:01)
--- NOTE | 2019-08-24 15:21 | DIS ---
DATE OF ADMISSION: 08/20/2019 DATE OF DISCHARGE: 08/24/2019 DISCHARGE DIAGNOSES: As of the followin. Acute respiratory failure with hypoxia. 2. Systolic heart failure, new diagnosis, compensated. 3. Pneumonia, community-acquired. 4. Acute kidney injury. 5. Chronic obstructive pulmonary disease exacerbation. HOSPITAL COURSE: The patient is an 88-year-old male, who initially presented to the hospital on 08/20, with complaints of shortness of breath. The patient at this time was found to be hypoxic and also was initially treated with broad-spectrum antibiotics and also was treated with some steroids given history of COPD. Also, echocardiogram was ordered. The patient's echocardiogram indicated an EF of 25% to 30%. He had severe mitral regurgitation. Cardiology did see him. He did have elevated troponins. He underwent a stress test. His stress test indicated global hypokinesis with diminished left ventricular ejection fraction of 30%. No evidence of ischemia. 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 When he came in initially, his creatinine was greater than baseline, it was 2.21, and his baseline is around 1.5. He was hydrated, and his creatinine on discharge was 1.55. He did have some mild elevated LFTs, which also have improved. The patient's IV antibiotics were changed to oral. He initially was on oxygen, and then he was weaned down to room air. I have given him a total of 5 days of steroids and also a total of 10 days of antibiotics. He will be discharged home. He will follow up with his primary care doctor and Cardiology. His home medications will be: 1. Coreg 6.25 b.i.d. 2. Isosorbide 10 mg t.i.d. 3. Levaquin 500 mg daily. 4. Spironolactone 25 mg daily. 5. Hydralazine 25 mg t.i.d. 6. Prednisone 40 mg for just next 2 doses. 7. Allopurinol 100 mg daily. 8. Omeprazole 40 mg daily. 9. Levothyroxine 0.137 daily. 10. Gabapentin 300 mg q.i.d. We will decrease his atorvastatin from 80 to 40. PHYSICAL EXAMINATION: VITAL SIGNS: Temperature of 98.1, heart rate 69, respiratory rate 20, oxygen saturation 95% on room air, blood pressure 126/66. GENERAL: He is awake, alert, and oriented x3, does not appear in distress. HEENT: Normocephalic and atraumatic. No lymphadenopathy noted. Pupils are equal and reactive to light. CV: S1 and S2 present. No murmurs, rubs, or gallops. Again, he will be discharged home. He will follow up with his primary and also Cardiology. He did not want to go to inpatient rehabilitation. The patient has good support at home. 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 Job ID: [id number]
[2019-08-24 16:17] VITALS: TEMP 97.6
[2019-08-24 19:07] VITALS: BP 126/66
--- NOTE | 2019-08-25 02:58 | PQF ---
PATRICK PASTOR KARISHMA [id number] CLINICAL DOCUMENTATION CLARIFICATION FORM: POST DISCHARGE Addendum to original discharge summary date: ____ Late entry note date: __ DATE: 08/25/19 ATTN: Corrine Goldstein Please exercise your independent, professional judgment in responding to the clarification form. Clinical indicators are provided on the bottom of this form for your review Can you please further specify the diagnosis based on the clinical indictors below? Please check appropriate box(es): [ ] Sepsis due to: (Pna, UTI, gangrenous gall bladder, etc.) [ ] Severe sepsis with acute organ dysfunction of: (Examples: respiratory failure, encephalopathy, acute kidney failure, other) [ ] Localized infection without sepsis [ x ] Other diagnosis __possible Community acquired pneumonia [ ] Unable to determine In addition, please specify: Present on Admission (POA): [ x] Yes [ ] No [ ] Unable to determine For continuity of documentation, please document condition throughout progress notes and discharge summary. Thank You. CLINICAL INDICATORS - SIGNS / SYMPTOMS / LABS H and P pg,1- history of shortness of breath from 3 days. This has been progressively getting worse H and P pg.2- Vital signs: BP 124/66, pulse 84, RR 20, Temp 99.5 Laboratory- WBC 5.9. 4.1L, 9.7, 6.9 DS pg.1- patient found to be hypoxic and also initiated broad-spectrum antibiotics ans also was treated with some steroids RISK FACTORS Acute respiratory failure with hypoxia- DS pg.1 Systolic heart failure, new diagnosis- DS pg.1 acute kidney injury-DS pg.1 Community acquired Pneumonia- DS pg.1 COPD exacerbation- DS pg.1 TREATMENTS: Chest X ray 08/20 Blood culture- Microbiology 08/20 IV Fluids- DEC 27 IV Antibiotics- DEC 27 (This form is maintained as a part of the permanent medical record) 2014 [employer], [employer]. All Rights Reserved [email or web address] [not provided] MTDD
--- NOTE | 2019-08-29 19:57 | PQF ---
PATRICK PASTOR KARISHMA [id number] CLINICAL DOCUMENTATION CLARIFICATION FORM: POST DISCHARGE Addendum to original discharge summary date: ____ Late entry note date: __ DATE: 08/29/19 ATTN: Corrine Goldstein Please exercise your independent, professional judgment in responding to the clarification form. Clinical indicators are provided on the bottom of this form for your review Please check appropriate box(s): Systolic HEART FAILURE: I HAVE ALREADY MENTIONED IT IN MY NOTE ABOUT SYSTOLIC HF, WHY ARE YOU SENDING ME THIS? B. ACUITY [ ] Acute [ ] Acute on Chronic [ ] Chronic [ ] Other diagnosis please specify [ ] Unable to determine In addition, please specify: Present on Admission (POA): [ ] Yes [ ] No [ ] Unable to determine For continuity of documentation, please document condition throughout progress notes and discharge summary. Thank You. CLINICAL INDICATORS - SIGNS / SYMPTOMS / LABS H and P 08/20 pg.1- "possible CHF exacerbation" H and P 08/20 pg.1- "history of shortness of breath from last 3days" H and P pg.3- "BNP is 1079" Consult Dr. Uribe 08/21 pg.2 -"congestive heart failure" Echocardiogram- "ejection fraction is visually estimated at 25-30%" Hospitalist PN 08/23 Ashley pg.5- "systolic heart failure status: Acute" Ds pg.1- "systolic heart failure newly diagnosis, compensated" RISKS: history of COPD- H and P pg.1 hypertension- H and P pg.1 dyslipidemia- H and P pg.1 hypothyroidism- H and P pg.1 acute respiratory failure with hypoxia- H and P pg.3 TREATMENTS: Chest Xray 08/[address] Uribe 08/21 Echocardiogram 08/21 Stress test 08/23 IV Lasix- DEC 27 (This form is maintained as a part of the permanent medical record) 2014 [employer], [employer]. All Rights Reserved Chance [email or web address] be [not provided] MTDD
== END 2019-08-24 19:17 | disposition home or self-care (01) | DRG 291 ==
LOC: ERS 12:46 → 2NO 16:16
PROVIDERS: ADMIT Internal Medicine; ATTEND Internal Medicine
DX: I13.0 Hypertensive heart and chronic kidney disease with heart failure and stage 1 through stage 4 chronic kidney disease, or unspecified chronic kidney disease (principal); J18.9 Pneumonia, unspecified organism; J96.21 Acute and chronic respiratory failure with hypoxia; I50.23 Acute on chronic systolic (congestive) heart failure; J44.1 Chronic obstructive pulmonary disease with (acute) exacerbation; N17.9 Acute kidney failure, unspecified; J44.0 Chronic obstructive pulmonary disease with (acute) lower respiratory infection; I42.9 Cardiomyopathy, unspecified; E78.5 Hyperlipidemia, unspecified; E03.9 Hypothyroidism, unspecified; I44.7 Left bundle-branch block, unspecified; E78.00 Pure hypercholesterolemia, unspecified; M54.9 Dorsalgia, unspecified; N18.3 Chronic kidney disease, stage 3 (moderate); K21.9 Gastro-esophageal reflux disease without esophagitis; Z79.51 Long term (current) use of inhaled steroids; Z79.82 Long term (current) use of aspirin; Z79.890 Hormone replacement therapy; Z79.899 Other long term (current) drug therapy; Z87.891 Personal history of nicotine dependence; I34.0 Nonrheumatic mitral (valve) insufficiency
CPT/HCPCS: 36415; 71045; 78452; 78582; 80048; 80053; 80069; 80076; 82553; 83605; 83880; 84484; 85025; 85379; 87040; 87070; 87205; 87804; 93005; 93017; 93306; 93798; 94640; 96365; 96367; 96375; A9500; A9540; A9558; J0456; J0696; J1650; J1940; J2785; J2920; J2930; J3490; J7512; J7611; J7620

== ENCOUNTER 2019-11-21 02:40 | Observation (INO) | payer OTHER ==
[2019-11-21 03:14] LABS: Hemoglobin 11.7 g/dL (14.0-18.0); Mean Corpuscular HGB CONC 32.8 g/dL (32.0-36.0); Mean Corpuscular Hemoglobin 34.8 pg (27.0-31.0); RBC Distribution Width 13.5 % (11.5-14.5); Red Blood Cell (RBC) Count 3.36 mill/uL (4.70-6.10)
[2019-11-21 03:21] LABS: #Eosinphils 0.1 thou/uL (0.0-0.7); #Lymphocytes 1.4 thou/uL (1.20-3.40); #Monocytes 0.7 thou/uL (0.11-0.59); #Neutrophils 5.3 thou/uL (1.40-6.50); %Basophils 0.5 % (0.0-1.0); %Eosinophils 1.2 % (0.0-10.0); %Lymphocytes 18.8 % (21.0-51.0); %Monocytes 9.1 % (0.0-10.0); %Neutrophils 70.4 % (42.0-75.0); MDiff Complete? YES; Macrocytosis SLIGHT = 6-15 cells (100X) (0-5/hpf); Mean Platelet Volume 6.6 fL (7.4-10.4); Platelet Count 144 thou/uL (130-400); White Blood Cell (WBC) Count 7.6 thou/uL (4.8-10.8)
[2019-11-21 03:25] LABS: ALT (SGPT) 24 U/L (8-55); AST (SGOT) 31 U/L (5-34); Alkaline Phosphatase 57 U/L (40-110); Anion Gap 16 mmol/L (10-20); BUN (Urea Nitrogen) 39 mg/dL (8.4-25.7); Bilirubin, Total 0.5 mg/dL (0.2-1.2); CK (CPK) 101 U/L (30-200); Calc. Creatinine Clearance 0 mL/min (70-130); Calcium 9.4 mg/dL (7.8-10.44); Carbon Dioxide 23 mmol/L (23-31); Chloride 106 mmol/L (98-107); Estimated GFR-MDRD 34; Globulin 2.3 g/dL (2.4-3.5); Glucose 116 mg/dL (83-110); Lipase 46 U/L (8-78); Potassium 4.7 mmol/L (3.5-5.1); Protein, Total 6.3 g/dL (5.8-8.1); Sodium 140 mmol/L (136-145)
[2019-11-21 03:46] LABS: CKMB 4.3 ng/mL (0-6.6)
[2019-11-21] MEDS ORDERED: Aspirin 325 MG TAB PO SCH (06:15)
[2019-11-21] MEDS ORDERED: Senokot S 8.6-50 MG TAB PO PRN (06:20)
[2019-11-21] MEDS ORDERED: Bisacodyl 10 MG SUPP PR PRN (06:20)
[2019-11-21] MEDS ORDERED: Acetaminophen 325 MG TAB PO PRN (06:20)
[2019-11-21] MEDS ORDERED: Calcium Carbonate 500 MG ChewTAB PO PRN (06:20)
[2019-11-21] MEDS ORDERED: Acetaminophen 650 MG Suppository PR PRN (06:20)
[2019-11-21 07:02] VITALS: BMI 24.9
[2019-11-21 07:03] LABS: Troponin I 0.075 ng/mL (< 0.028)
--- NOTE | 2019-11-21 07:13 | HP ---
PRIMARY CARE PHYSICIAN: [facility]. PRIMARY BONDING MACHINE SETTER: Dr. Ari Uribe. CHIEF COMPLAINT: Chest discomfort. HISTORY OF PRESENT ILLNESS: The patient is an 89-year-old male with congestive heart failure, hypertension, and COPD, presented to the emergency room with chest discomfort. His last admission to this facility was in August of 2019 for congestive heart failure exacerbation. He had a stress test that was negative for reversible ischemia. His ejection fraction was 30% on a stress test and 25% to 30% on the echo. He was discharged home with the LifeVest. The patient presented to the emergency room with chest discomfort that started yesterday around 07:30 p.m. The pain was precordial, radiating to his left arm. It was pressure-like, 6/10. He felt generally weak and had some nausea. No syncope, palpitations, diaphoresis reported. He denies recent immobilization, travel. He received nitroglycerin by EMS, which improved his pain. He presented to the emergency room around 02:44 a.m. by EMS. He received three sprays of nitroglycerin, 324 aspirin, and 1 inch nitroglycerin by EMS. PAST MEDICAL HISTORY: 1. 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 The patient has a LifeVest. 2. Chronic obstructive pulmonary disease. 3. Dyslipidemia. 4. Hypothyroidism. 5. Chronic low back pain. 6. History of abdominal aortic aneurysm with repair. 7. Severe mitral regurgitation. PAST SURGICAL HISTORY: 1. Back surgery. 2. Neck surgery. 3. Right nephrectomy. 4. Abdominal aortic aneurysm repair. 5. Prostate surgery. ALLERGIES: NO KNOWN DRUG ALLERGIES. CURRENT HOME MEDICATIONS: 1. Albuterol inhaler as needed. 2. Allopurinol 100 mg daily. 3. Amlodipine 5 mg daily. 4. Lipitor 80 mg daily. 5. Budesonide with formoterol two puffs twice a day. 6. Carvedilol 6.25 mg twice a day. 7. Ferrous sulfate 325 mg twice a day. 8. Gabapentin 300 mg four times a day. 9. Hydralazine 25 mg 3 times a day. 10. Hydroxychloroquine 200 mg twice a day. 11. Isosorbide dinitrate 10 mg 3 times a day. 12. Levothyroxine 137 mcg daily. 13. Omeprazole 20 mg daily. 14. Propranolol 20 mg b.i.d. SOCIAL HISTORY: The patient quit smoking more than 20 years ago. Has 40-pack year smoking history. Currently lives in [place] with his . His son, Kike is the primary decision maker. FAMILY HISTORY: Mother with breast cancer. REVIEW OF SYSTEMS: All other review of systems was reviewed and was found negative. PHYSICAL EXAMINATION: VITAL SIGNS: Temperature 97.9, respiration of 18, pulse rate of 78, blood pressure of 156/83, and O2 saturation 95% on room air. GENERAL: An 89-year-old male in no apparent distress. HEENT: Head, atraumatic and normocephalic. Sclerae anicteric. Moist mucous membranes. No oral lesion. NECK: Supple. No JVD. No carotid bruit. LUNGS: Showed diminished air entry at bilateral bases with occasional rhonchi and few rales at bases. No wheezing. HEART: S1, S2 present. Regular rate and rhythm. No rubs or gallops. LifeVest in place. ABDOMEN: Soft, nontender. Bowel sounds present. EXTREMITIES: No edema or calf tenderness. NEUROLOGY: Grossly nonfocal. Moves all 4 extremities. PSYCHIATRY: Alert, awake, and oriented x3. SKIN: Warm and dry. LYMPH NODES: No palpable lymph nodes in the neck. LABORATORY FINDINGS: CBC showed WBC 7.6 with hemoglobin 11.7, hematocrit 35.6, and platelet of 144. Chemistry showed sodium 140, potassium 4.7, chloride 106, bicarb 23, BUN 39, and creatinine 1.90. LFTs in normal range. BNP was 355. Troponin was 0.068 with a normal CK-MB. IMAGING STUDIES: Chest x-ray by my review was negative for infiltrate or edema. IMPRESSION: 1. Chest discomfort, rule out acute coronary syndrome. 2. Chronic kidney disease, stage 3. 3. Chronic systolic and diastolic heart failure appears to be compensated. 4. Chronic obstructive pulmonary disease. 5. Hypertension. 6. Dyslipidemia. 7. Hypothyroidism. 8. Chronic low back pain. 9. Gastroesophageal reflux disease. 10. Former smoker. 11. Chronic anemia. PLAN: 1. The patient will be monitored on the telemetry unit as observation. He will be kept n.p.o. Cardiology will be consulted. We will resume all of his home medications. We will continue aspirin along with isosorbide dinitrate. We will continue propranolol. We will keep him n.p.o. for Cardiology evaluation. We will recheck troponin every 3 hours x2. 2. The patient understands the above plan of care. Job ID: [id number]
--- NOTE | 2019-11-21 07:44 | RAD ---
RADIOGRAPH CHEST 1 VIEW: DATE: 11/21/2019 TIME: 2:55 AM HISTORY: 89-year-old male with chest pain COMPARISON: 08/20/2019 FINDINGS: Diffuse bilateral interstitial infiltrates appear worse on the current study, perhaps due to shallowe r inspiration and positional differences. No gross consolidation. No pneumothorax. No cardiomegaly. IMPRESSION: Diffuse bilateral interstitial infiltrates. Uncertain whether chronic or acute.
[2019-11-21] MEDS ORDERED: Isosorbide Dinitrate 5 MG TAB PO SCH ×2 (09:00→09:45)
[2019-11-21] MEDS ORDERED: hydrALAZINE 25 MG TAB PO SCH ×3 (09:00→15:00)
[2019-11-21] MEDS ORDERED: Gabapentin 300 MG CAP PO SCH (09:00)
[2019-11-21] MEDS: Carvedilol 6.25 MG TAB PO SCH ×2 (09:52→17:20)
[2019-11-21] MEDS: Allopurinol 100 MG TAB PO SCH (09:53)
[2019-11-21] MEDS: Hydroxychloroquine Sulfate 200 MG TAB PO SCH (09:53)
[2019-11-21] MEDS: Gabapentin 300 MG CAP PO SCH ×2 (09:53→20:48)
[2019-11-21] MEDS: Aspirin 81 mg Enteric Coated Tablet PO SCH (09:53)
--- NOTE | 2019-11-21 09:53 | CON ---
DATE OF CONSULTATION: HISTORY OF PRESENT ILLNESS: The patient is a pleasant 89-year-old gentleman with a history of a severe cardiomyopathy, who presents with chest discomfort. The patient was seen in August of this year with congestive heart failure. He also has chronic renal failure. The patient underwent an echocardiogram, which revealed him to have a severe decrease in left ventricular systolic function, estimated ejection fraction 25% to 30%, and severe mitral regurgitation. The patient also underwent a nuclear Cardiolite stress test, which revealed him to have ejection fraction of 30% with global hypokinesis. No evidence of ischemia. The patient declined to undergo an invasive evaluation and he has been subsequently placed on medical therapy. The patient states he has been in the usual state of health. He has been able to exercise without difficulty until a few days ago. He developed midsternal chest discomfort, this lasted for approximately 30 minutes. The patient did not seek medical attention. He reports that yesterday he developed recurrent chest discomfort. The patient checked his blood pressure and it was markedly elevated. He states that he has been compliant with medications and not with his low- sodium diet. The patient came to the emergency room. He received nitroglycerin and has had no further chest discomfort. PAST MEDICAL HISTORY: 1. Cardiomyopathy. 2. Chronic renal failure. 3. History of nephrectomy. 4. COPD. 5. History of aortic aneurysm. 6. Dyslipidemia. PAST SURGICAL HISTORY: 1. Abdominal aortic aneurysm surgery. 2. Nephrectomy. 3. Back surgery. 4. Prostate surgery. 5. Neck surgery. SOCIAL HISTORY: Nonsmoker. ALLERGIES: NO KNOWN DRUG ALLERGIES. MEDICATIONS ON ADMISSION: 1. Coreg 6.25 b.i.d. 2. Hydralazine 25 t.i.d. 3. Omeprazole 40 daily. 4. Lipitor 80 nightly. 5. Allopurinol 100 mg daily. REVIEW OF SYSTEMS: Ten-point system is otherwise unremarkable. PHYSICAL EXAMINATION: GENERAL: This is a well-developed gentleman, in no acute distress. VITAL SIGNS: Blood pressure 164/83. NECK: No jugular venous distention. LUNGS: Clear to auscultation. HEART: Regular rate and rhythm. Normal S1 and S2 with a 2/6 holosystolic murmur. ABDOMEN: Nondistended. EXTREMITIES: No edema. VASCULAR: Radial pulses 2+. LABORATORY DATA: Sodium 140, potassium 4.7, chloride 106, bicarbonate 23, BUN 39, and creatinine 1.9. Troponin 0.068. BNP is 355. White blood cell count 7.6, hemoglobin 11.7, hematocrit 35.6, and platelets are 144. EKG sinus rhythm, left axis deviation, left bundle-branch block. IMPRESSION: 1. Unstable angina. 2. History of severe cardiomyopathy. 3. History of aortic aneurysm. 4. Hypertension. 5. Renal insufficiency. 6. Dyslipidemia. PLAN: This gentleman presents with unstable angina. His blood pressure has been elevated. He has been noncompliant with his low-sodium diet. At this time , we will increase the dose of his hydralazine and Isordil. I discussed again the option of undergoing invasive evaluation. The patient is adamant that he prefers medical therapy. We will follow this patient with you through his hospitalization. Job ID: [id number] MTDD
[2019-11-21] MEDS: hydrALAZINE 25 MG TAB PO SCH ×2 (16:21→21:14)
[2019-11-21] MEDS: Isosorbide Dinitrate 5 MG TAB PO SCH ×2 (16:22→21:14)
[2019-11-21] MEDS ORDERED: Atorvastatin Calcium 40 MG TAB PO SCH (21:00)
[2019-11-22 05:18] LABS: Anion Gap 11 mmol/L (10-20); BUN (Urea Nitrogen) 32 mg/dL (8.4-25.7); Calc. Creatinine Clearance 31 mL/min (70-130); Calcium 9.5 mg/dL (7.8-10.44); Carbon Dioxide 26 mmol/L (23-31); Chloride 107 mmol/L (98-107); Estimated GFR-MDRD 37; Glucose 93 mg/dL (83-110); Magnesium 2.2 mg/dL (1.6-2.6); Potassium 4.3 mmol/L (3.5-5.1); Sodium 140 mmol/L (136-145)
[2019-11-22] MEDS ORDERED: Levothyroxine Sodium 112 MCG TAB PO SCH (06:00)
[2019-11-22] MEDS ORDERED: Levothyroxine Sodium 25 MCG TAB PO SCH (06:00)
[2019-11-22] MEDS: hydrALAZINE 25 MG TAB PO SCH (08:25)
[2019-11-22] MEDS: Isosorbide Dinitrate 5 MG TAB PO SCH (08:25)
[2019-11-22] MEDS: Allopurinol 100 MG TAB PO SCH (08:25)
[2019-11-22] MEDS: Carvedilol 6.25 MG TAB PO SCH (08:26)
[2019-11-22] MEDS: Hydroxychloroquine Sulfate 200 MG TAB PO SCH (08:26)
[2019-11-22] MEDS: Gabapentin 300 MG CAP PO SCH (08:26)
[2019-11-22] MEDS: Aspirin 81 mg Enteric Coated Tablet PO SCH (08:26)
--- NOTE | 2019-11-22 09:35 | PDOC.HOSPP ---
- Subjective Encounter Date: 11/22/19 Encounter Time: 12:30 Subjective: Patient without further chest pain. No SOB. Ready to go home. - Objective Vital Signs & Weight: Vital Signs (12 hours) Temp Pulse Resp BP BP Pulse Ox 11/22/19 08:29 97.9 F 64 16 131/67 94 L 11/22/19 08:04 94 L 11/22/19 04:26 98.2 F 91 16 110/56 L 94 L 11/21/19 23:05 98.2 F 62 14 125/59 L 94 L Weight Weight 161 lb 12.8 oz I&O: 11/21/19 11/22/19 11/23/19 06:59 06:59 06:59 Intake Total 1735 Balance 1735 Result Diagrams: 11/21/19 02:52 11/22/19 04:34 Hospitalist ROS - Review of Systems Constitutional: denies: fever, chills Respiratory: denies: cough, shortness of breath Cardiovascular: denies: chest pain, palpitations, orthopnea Gastrointestinal: denies: nausea, vomiting, abdominal pain - Medication Medications: Active Medications Generic Name Dose Route Start Last Admin Trade Name Freq PRN Reason Stop Dose Admin Allopurinol 100 mg 11/21/19 09:00 11/22/19 08:25 Zyloprim PO 100 mg DAILY LEO Administration Aspirin 81 mg 11/21/19 09:00 11/22/19 08:26 Ecotrin PO 81 mg DAILY LEO Administration Atorvastatin Calcium 40 mg 11/21/19 21:00 11/21/19 20:48 Lipitor PO 40 mg HS LEO Administration Calcium Carbonate 1,000 mg 11/21/19 06:20 11/21/19 17:25 Tums PO 1,000 mg Q4H PRN Administration Heartburn or Indigestion Carvedilol 6.25 mg 11/21/19 08:00 11/22/19 08:26 Coreg PO 6.25 mg BID-WM LEO Administration Gabapentin 300 mg 11/21/19 09:00 11/22/19 08:26 Neurontin PO 300 mg BID LEO Administration Hydralazine HCl 25 mg 11/21/19 15:00 11/22/19 08:25 Apresoline PO 25 mg TID LEO Administration Hydroxychloroquine Sulfate 200 mg 11/21/19 09:00 02/04/20 08:26 Plaquenil PO 200 mg DAILY LEO Administration Isosorbide Dinitrate 20 mg 11/21/19 15:00 11/22/19 08:25 Isordil PO 20 mg TID LEO Administration Levothyroxine Sodium 112 mcg 11/22/19 06:00 11/22/19 05:28 Synthroid PO 112 mcg 0600 LEO Administration Levothyroxine Sodium 25 mcg 11/22/19 06:00 11/22/19 05:28 Synthroid PO 25 mcg 0600 LEO Administration Pantoprazole Sodium 40 mg 11/21/19 09:00 11/22/19 08:26 Protonix PO 40 mg DAILY LEO Administration Senna/Docusate Sodium 2 tab 11/21/19 06:20 11/22/19 08:30 Senokot S PO 2 tab BID PRN Administration Constipation - Exam General Appearance: NAD, awake alert ENT: moist mucosa Heart: RRR, no murmur, no gallops, no rubs Respiratory: CTAB, no wheezes, no rales, no ronchi Gastrointestinal: soft, non-tender, non-distended, normal bowel sounds Psychiatric: normal affect, normal behavior, A&O x 3 Hosp A/P (1) Unstable angina Status: Acute (2) Systolic heart failure Code(s): I50.20 - UNSPECIFIED SYSTOLIC (CONGESTIVE) HEART FAILURE Status: Chronic Qualifiers: Heart failure chronicity: chronic Qualified Code(s): I50.22 - Chronic systolic (congestive) heart failure (3) COPD (chronic obstructive pulmonary disease) Status: Chronic (4) Chronic renal failure, stage 3 (moderate) Code(s): N18.3 - CHRONIC KIDNEY DISEASE, STAGE 3 (MODERATE) Status: Chronic (5) Gout Code(s): M10.9 - GOUT, UNSPECIFIED Status: Chronic (6) HLD (hyperlipidemia) Code(s): E78.5 - HYPERLIPIDEMIA, UNSPECIFIED Status: Chronic (7) HTN (hypertension) Code(s): I10 - ESSENTIAL (PRIMARY) HYPERTENSION Status: Chronic (8) Hypothyroidism Code(s): E03.9 - HYPOTHYROIDISM, UNSPECIFIED Status: Chronic - Plan Patient has opted for medical management of angina instead of cardiac cath. Dr. Uribe adjusted medications, cleared the patient to go home today. DVT Proph: SCDs
[2019-11-22] MEDS ORDERED: Albuterol Sulfate 1.25 MG/3 ML NEB NEB PRN (09:36)
[2019-11-22] MEDS ORDERED: Non-Formulary Item 1 EACH (Albuterol Sulfate Hfa (Or) 1 PUFF) INH PRN (09:36)
[2019-11-22] MEDS ORDERED: PROVENTIL INHALER 6.7 G (200 INHALATIONS) INH PRN (09:45)
[2019-11-22 11:43] VITALS: BP 113/58; TEMP 97.4
[2019-11-22] MEDS ORDERED: Isosorbide Dinitrate 20 MG TAB PO SCH (15:00)
[2019-11-22] MEDS ORDERED: Carvedilol 6.25 MG TAB PO SCH (21:00)
[2019-11-22] MEDS ORDERED: Atorvastatin Calcium 40 MG TAB PO SCH (21:00)
[2019-11-22] MEDS ORDERED: Non-Formulary Item 1 EACH (Ferrous Sulfate [Ferrous Sulfate] 325 MG) PO SCH (21:00)
[2019-11-22] MEDS ORDERED: Non-Formulary Item 1 EACH (Atorvastatin Calcium [Atorvastatin Calcium] 80 MG) PO SCH (21:00)
[2019-11-22] MEDS ORDERED: Ferrous Sulfate 325 MG TAB PO SCH (21:00)
[2019-11-22] MEDS ORDERED: Non-Formulary Item 1 EACH (Carvedilol [Coreg] 12.5 MG) PO SCH (21:00)
--- NOTE | 2019-11-23 06:24 | DIS ---
DATE OF ADMISSION: 11/21/2019 DATE OF DISCHARGE: 11/22/2019 PRIMARY CARE PHYSICIAN: [facility] in [place]. REASON FOR ADMISSION: Chest pain. DIAGNOSES AT DISCHARGE: 1. Unstable angina. 2. Chronic systolic congestive heart failure. 3. Chronic obstructive pulmonary disease. 4. Chronic renal failure stage 3. 5. Gout. 6. Hyperlipidemia. 7. Hypertension. 8. Hypothyroidism. PROCEDURES: None. CONSULTATION: Cardiology, Dr. Calloway. SUMMARY OF HOSPITAL COURSE: This is an 89-year-old male with a known history of congestive heart failure, hypertension, COPD, presented to the emergency room with chest discomfort. He has had a stress test previously that was negative for reversible ischemia. The patient does continue to have pain episodes, though he had indeterminate troponins, negative changes to EKG. Dr. Uribe was consulted. He determined that this was unstable angina, again offered the patient cardiac catheterization; however, the patient prefers medical therapy only. Medications were adjusted, and the patient was pain-free at the time of discharge and he is being discharged home. DISCHARGE MANAGEMENT: Discharged home. FOLLOWUP: Follow up with Dr. Calloway and call his office to schedule an appointment and to follow up with the [facility] in the next few weeks. ACTIVITY: As tolerated. DIET: Healthy heart, low-sodium diet. MEDICATIONS: 1. Hydralazine 25 mg 3 times a day. He can take two tablets early in the morning. His blood pressure is running significantly high. 2. Isosorbide dinitrate 20 mg 3 times a day 90 tablets dispensed of each of these. 3. Albuterol neb as needed. 4. Allopurinol 100 mg daily. 5. Aspirin 81 mg daily. 6. Atorvastatin 80 mg at night. 7. Carvedilol 12.5 mg twice a day. 8. Ferrous sulfate 325 mg twice a day. 9. Gabapentin 300 mg 4 times a day. 10. Hydroxychloroquine sulfate 200 mg twice a day. 11. Probiotic 5 billion cell capsule, one capsule p.o. daily. 12. Levothyroxine 0.137 mg daily. 13. Omeprazole 40 mg daily. Job ID: [id number]
[2019-11-23] MEDS ORDERED: [UNRECOGNIZED DRUG - OTHER] PO SCH (09:00)
[2019-11-23] MEDS ORDERED: PROBIOTIC PO SCH (09:00)
== END 2019-11-22 15:33 | disposition home or self-care (01) ==
LOC: ERS 02:40 → 2SW 04:09
PROVIDERS: ADMIT Internal Medicine; ATTEND Internal Medicine
DX: I20.0 Unstable angina (principal); I13.0 Hypertensive heart and chronic kidney disease with heart failure and stage 1 through stage 4 chronic kidney disease, or unspecified chronic kidney disease; N18.3 Chronic kidney disease, stage 3 (moderate); I50.42 Chronic combined systolic (congestive) and diastolic (congestive) heart failure; D63.1 Anemia in chronic kidney disease; J44.9 Chronic obstructive pulmonary disease, unspecified; E03.9 Hypothyroidism, unspecified; E78.5 Hyperlipidemia, unspecified; M10.9 Gout, unspecified; G89.29 Other chronic pain; M54.5 Low back pain; Z79.899 Other long term (current) drug therapy; Z87.891 Personal history of nicotine dependence
CPT/HCPCS: 36415; 71045; 80048; 80053; 82550; 82553; 83690; 83735; 83880; 84484; 85025; 93005; 93798; 94760; G0378

== ENCOUNTER 2021-04-19 14:01 | Inpatient (IN) | payer OTHER ==
[2021-04-19 15:11] LABS: Hemoglobin 10.9 g/dL (14.0-18.0); Mean Corpuscular HGB CONC 32.3 g/dL (32.0-36.0); Mean Corpuscular Hemoglobin 35.6 pg (27.0-31.0); Platelet Count 192 thou/uL (130-400); Red Blood Cell (RBC) Count 3.05 mill/uL (4.70-6.10); White Blood Cell (WBC) Count 7.6 thou/uL (4.8-10.8)
[2021-04-19 15:29] LABS: #Eosinphils 0.2 thou/uL (0.0-0.7); #Monocytes 0.6 thou/uL (0.11-0.59); #Neutrophils 5.8 thou/uL (1.40-6.50); %Basophils 0.6 % (0.0-1.0); %Eosinophils 2.7 % (0.0-10.0); %Lymphocytes 12.7 % (21.0-51.0); %Monocytes 7.6 % (0.0-10.0); %Neutrophils 76.3 % (42.0-75.0); ALT (SGPT) 21 U/L (8-55); AST (SGOT) 40 U/L (5-34); Alkaline Phosphatase 97 U/L (40-110); Anion Gap 17 mmol/L (10-20); BUN (Urea Nitrogen) 28 mg/dL (8.4-25.7); Bilirubin, Total 0.9 mg/dL (0.2-1.2); Calc. Creatinine Clearance 0 mL/min (70-130); Calcium 9.4 mg/dL (7.8-10.44); Carbon Dioxide 21 mmol/L (23-31); Chloride 104 mmol/L (98-107); Globulin 2.4 g/dL (2.4-3.5); Glucose 105 mg/dL (83-110); MDiff Complete? YES; Macrocytosis SLIGHT = 6-15 cells (100X) (0-5/hpf); Ovalocytes SLIGHT = 2-5 cells (100X) (0-1/hpf); Platelet Morphology Comment Appears Adequate; Polychromasia SLIGHT = 2-3 cells (100X) (0-2/hpf); Potassium 4.5 mmol/L (3.5-5.1); Protein, Total 6.4 g/dL (5.8-8.1); Sodium 137 mmol/L (136-145); Tear Drops SLIGHT = 2-5 cells (100X) (0-1/hpf)
[2021-04-19 15:51] LABS: CKMB 3.9 ng/mL (0-6.6)
[2021-04-19] MEDS ORDERED: Nitroglycerin 0.4 MG TAB (25 Tab Bottle) SL PRN (16:40)
[2021-04-19] MEDS ORDERED: Furosemide 40 MG/4 ML VIAL SLOW IVP SCH (17:15)
[2021-04-19 17:54] LABS: Troponin I 0.054 ng/mL (< 0.028)
[2021-04-19 18:15] VITALS: BMI 24.0
[2021-04-19] MEDS: Atorvastatin Calcium 40 MG TAB PO SCH (20:35)
[2021-04-19] MEDS: Ferrous Sulfate 325 MG TAB PO SCH (20:36)
[2021-04-19] MEDS: Carvedilol 6.25 MG TAB PO SCH (20:36)
[2021-04-19] MEDS: Isosorbide Dinitrate 20 MG TAB PO SCH (20:36)
[2021-04-19] MEDS: hydrALAZINE 25 MG TAB PO SCH (20:36)
[2021-04-19] MEDS: Gabapentin 300 MG CAP PO SCH (20:36)
[2021-04-19] MEDS: Heparin 5,000 UNITS/ML VIAL SC SCH (20:37)
[2021-04-19] MEDS: Hydroxychloroquine Sulfate 200 MG TAB PO SCH (20:42)
[2021-04-19 21:18] LABS: Troponin I 0.058 ng/mL (< 0.028)
[2021-04-20 04:47] LABS: #Eosinphils 0.3 thou/uL (0.0-0.7); #Monocytes 0.8 thou/uL (0.11-0.59); #Neutrophils 4.7 thou/uL (1.40-6.50); %Basophils 0.3 % (0.0-1.0); %Eosinophils 3.8 % (0.0-10.0); %Lymphocytes 14.9 % (21.0-51.0); %Neutrophils 69.1 % (42.0-75.0); Hemoglobin 10.1 g/dL (14.0-18.0); Mean Corpuscular HGB CONC 33.9 g/dL (32.0-36.0); Mean Corpuscular Hemoglobin 36.9 pg (27.0-31.0); Platelet Count 167 thou/uL (130-400); RBC Distribution Width 15.2 % (11.5-14.5); Red Blood Cell (RBC) Count 2.75 mill/uL (4.70-6.10); White Blood Cell (WBC) Count 6.8 thou/uL (4.8-10.8)
[2021-04-20 05:06] LABS: Anion Gap 15 mmol/L (10-20); BUN (Urea Nitrogen) 28 mg/dL (8.4-25.7); Calc. Creatinine Clearance 29 mL/min (70-130); Calcium 9.1 mg/dL (7.8-10.44); Carbon Dioxide 24 mmol/L (23-31); Cardiac Risk 2.6 (Less than 4.5); Chloride 104 mmol/L (98-107); Cholesterol 90 mg/dl (< 200 Desired); Glucose 81 mg/dL (83-110); HDL Cholesterol 34 mg/dL (>60 Neg Risk); LDL Cholesterol, Calculated 43 mg/dL; Potassium 3.9 mmol/L (3.5-5.1); Sodium 139 mmol/L (136-145); Triglycerides 64 mg/dL (Less than 150)
[2021-04-20] MEDS: Furosemide 40 MG/4 ML VIAL SLOW IVP SCH ×2 (05:53→15:36)
[2021-04-20] MEDS: Levothyroxine Sodium 25 MCG TAB PO SCH (05:53)
[2021-04-20] MEDS: Levothyroxine Sodium 112 MCG TAB PO SCH (05:54)
[2021-04-20] MEDS: Aspirin 81 mg Enteric Coated Tablet PO SCH (09:20)
[2021-04-20] MEDS: Carvedilol 6.25 MG TAB PO SCH ×2 (09:20→22:15)
[2021-04-20] MEDS: hydrALAZINE 25 MG TAB PO SCH ×3 (09:20→22:15)
[2021-04-20] MEDS: Allopurinol 100 MG TAB PO SCH (09:21)
[2021-04-20] MEDS: Ferrous Sulfate 325 MG TAB PO SCH ×2 (09:21→22:14)
[2021-04-20] MEDS: Heparin 5,000 UNITS/ML VIAL SC SCH ×3 (09:21→22:14)
[2021-04-20] MEDS: Gabapentin 300 MG CAP PO SCH ×4 (09:21→22:14)
[2021-04-20] MEDS: Isosorbide Dinitrate 20 MG TAB PO SCH ×3 (09:21→22:15)
[2021-04-20] MEDS: Hydroxychloroquine Sulfate 200 MG TAB PO SCH ×2 (11:10→22:18)
[2021-04-20] MEDS: Atorvastatin Calcium 40 MG TAB PO SCH (22:15)
[2021-04-20] MEDS ORDERED: Ondansetron ODT 4 MG TAB PO PRN (22:58)
[2021-04-21 04:56] LABS: Anion Gap 16 mmol/L (10-20); BUN (Urea Nitrogen) 33 mg/dL (8.4-25.7); Calc. Creatinine Clearance 24 mL/min (70-130); Calcium 9.1 mg/dL (7.8-10.44); Carbon Dioxide 26 mmol/L (23-31); Chloride 101 mmol/L (98-107); Glucose 104 mg/dL (83-110); Magnesium 2.1 mg/dL (1.6-2.6); Potassium 3.9 mmol/L (3.5-5.1); Sodium 139 mmol/L (136-145)
[2021-04-21] MEDS: Levothyroxine Sodium 112 MCG TAB PO SCH (06:29)
[2021-04-21] MEDS: Levothyroxine Sodium 25 MCG TAB PO SCH (06:29)
[2021-04-21] MEDS: Furosemide 40 MG/4 ML VIAL SLOW IVP SCH (06:30)
[2021-04-21] MEDS: hydrALAZINE 25 MG TAB PO SCH ×3 (08:40→21:11)
[2021-04-21] MEDS: Hydroxychloroquine Sulfate 200 MG TAB PO SCH ×2 (08:46→21:10)
[2021-04-21] MEDS: Carvedilol 6.25 MG TAB PO SCH ×2 (08:52→21:59)
[2021-04-21] MEDS: Isosorbide Dinitrate 20 MG TAB PO SCH ×3 (08:53→21:11)
[2021-04-21] MEDS: Ferrous Sulfate 325 MG TAB PO SCH ×2 (08:53→21:12)
[2021-04-21] MEDS: Allopurinol 100 MG TAB PO SCH (08:53)
[2021-04-21] MEDS: Aspirin 81 mg Enteric Coated Tablet PO SCH (08:53)
[2021-04-21] MEDS: Gabapentin 300 MG CAP PO SCH ×4 (08:54→21:11)
[2021-04-21] MEDS: Heparin 5,000 UNITS/ML VIAL SC SCH ×3 (08:57→21:10)
[2021-04-21] MEDS ORDERED: Furosemide 20 MG TAB PO SCH (14:00)
[2021-04-21] MEDS: Atorvastatin Calcium 40 MG TAB PO SCH (21:11)
[2021-04-22 04:57] LABS: Anion Gap 15 mmol/L (10-20); BUN (Urea Nitrogen) 41 mg/dL (8.4-25.7); Calc. Creatinine Clearance 20 mL/min (70-130); Carbon Dioxide 26 mmol/L (23-31); Chloride 101 mmol/L (98-107); Glucose 111 mg/dL (83-110); Magnesium 2.2 mg/dL (1.6-2.6); Potassium 3.8 mmol/L (3.5-5.1); Sodium 138 mmol/L (136-145)
[2021-04-22] MEDS: Levothyroxine Sodium 112 MCG TAB PO SCH (05:02)
[2021-04-22] MEDS: Levothyroxine Sodium 25 MCG TAB PO SCH (05:03)
[2021-04-22] MEDS ORDERED: Furosemide 40 MG/4 ML VIAL SLOW IVP SCH (06:00)
[2021-04-22] MEDS: Allopurinol 100 MG TAB PO SCH (09:07)
[2021-04-22] MEDS: Ferrous Sulfate 325 MG TAB PO SCH (09:08)
[2021-04-22] MEDS: Heparin 5,000 UNITS/ML VIAL SC SCH (09:08)
[2021-04-22] MEDS: Gabapentin 300 MG CAP PO SCH ×2 (09:08→13:16)
[2021-04-22] MEDS: Aspirin 81 mg Enteric Coated Tablet PO SCH (09:08)
[2021-04-22] MEDS: hydrALAZINE 25 MG TAB PO SCH (09:09)
[2021-04-22] MEDS: Isosorbide Dinitrate 20 MG TAB PO SCH (09:17)
[2021-04-22] MEDS: Carvedilol 6.25 MG TAB PO SCH (09:18)
[2021-04-22] MEDS: Hydroxychloroquine Sulfate 200 MG TAB PO SCH (09:46)
[2021-04-22 10:18] VITALS: BP 100/54; TEMP 97.8
== END 2021-04-22 13:52 | disposition home or self-care (01) | DRG 291 ==
LOC: ERS 14:01 → 2NO 16:30
PROVIDERS: ADMIT Internal Medicine; ATTEND Hospitalist
DX: I13.0 Hypertensive heart and chronic kidney disease with heart failure and stage 1 through stage 4 chronic kidney disease, or unspecified chronic kidney disease (principal); I50.43 Acute on chronic combined systolic (congestive) and diastolic (congestive) heart failure; J96.01 Acute respiratory failure with hypoxia; J44.1 Chronic obstructive pulmonary disease with (acute) exacerbation; I34.0 Nonrheumatic mitral (valve) insufficiency; N18.30 Chronic kidney disease, stage 3 unspecified; M10.9 Gout, unspecified; E78.5 Hyperlipidemia, unspecified; I25.5 Ischemic cardiomyopathy; I71.4 Abdominal aortic aneurysm, without rupture; I42.8 Other cardiomyopathies; E03.9 Hypothyroidism, unspecified; Z79.51 Long term (current) use of inhaled steroids; Z79.82 Long term (current) use of aspirin; Z79.890 Hormone replacement therapy; Z79.899 Other long term (current) drug therapy; Z90.49 Acquired absence of other specified parts of digestive tract; Z87.891 Personal history of nicotine dependence
CPT/HCPCS: 36415; 71045; 80048; 80053; 80061; 82553; 83735; 83880; 84484; 85025; 85379; 93005; 93306; 94640; 94760; J1644; J1940; J7620

== ENCOUNTER 2022-01-15 14:17 | Inpatient (IN) | payer OTHER ==
[2022-01-15 15:31] LABS: #Lymphocytes 1.1 thou/uL (1.20-3.40); #Neutrophils 9.8 thou/uL (1.40-6.50); %Basophils 0.1 % (0.0-1.0); %Eosinophils 0.1 % (0.0-10.0); %Lymphocytes 8.9 % (21.0-51.0); %Monocytes 8.1 % (0.0-10.0); %Neutrophils 82.7 % (42.0-75.0); Hemoglobin 11.6 g/dL (14.0-18.0); Mean Corpuscular HGB CONC 32.1 g/dL (32.0-36.0); Mean Corpuscular Hemoglobin 35.3 pg (27.0-31.0); Mean Platelet Volume 6.5 fL (7.4-10.4); Platelet Count 237 thou/uL (130-400); RBC Distribution Width 14.8 % (11.5-14.5); Red Blood Cell (RBC) Count 3.29 mill/uL (4.70-6.10); White Blood Cell (WBC) Count 11.8 thou/uL (4.8-10.8)
[2022-01-15 15:54] LABS: MDiff Complete? YES; Macrocytosis SLIGHT = 6-15 cells (100X) (0-5/hpf); Ovalocytes SLIGHT = 2-5 cells (100X) (0-1/hpf); Polychromasia SLIGHT = 2-3 cells (100X) (0-2/hpf)
[2022-01-15 15:58] LABS: ALT (SGPT) 41 U/L (8-55); AST (SGOT) 47 U/L (5-34); Albumin 4.2 g/dL (3.4-4.8); Alkaline Phosphatase 108 U/L (40-110); Anion Gap 18 mmol/L (10-20); BUN (Urea Nitrogen) 42 mg/dL (8.4-25.7); Bilirubin, Total 0.9 mg/dL (0.2-1.2); Calc. Creatinine Clearance 0 mL/min (70-130); Calcium 9.5 mg/dL (7.8-10.44); Carbon Dioxide 26 mmol/L (23-31); Chloride 101 mmol/L (98-107); Globulin 2.7 g/dL (2.4-3.5); Glucose 138 mg/dL (83-110); Potassium 4.5 mmol/L (3.5-5.1); Protein, Total 6.9 g/dL (5.8-8.1); Sodium 140 mmol/L (136-145)
[2022-01-15 16:18] LABS: CKMB 3.9 ng/mL (0-6.6)
[2022-01-15] MEDS ORDERED: Acetaminophen 325 MG TAB PO PRN (17:24)
[2022-01-15] MEDS ORDERED: Ondansetron PF 4 MG/2 ML Vial IVP PRN (17:24)
[2022-01-15] MEDS ORDERED: Aspirin 325 MG TAB ONE (17:25)
[2022-01-15] MEDS ORDERED: Furosemide 40 MG/4 ML VIAL ONE (17:25)
[2022-01-15 19:07] LABS: Troponin I 0.109 ng/mL (< 0.028)
[2022-01-15] MEDS ORDERED: cefTRIAXone\\ROCEPHIN 1 GM in Sodium Chloride 0.9% 100 ML IVPB SCH (20:00)
[2022-01-15 20:29] VITALS: BMI 23.8
[2022-01-15] MEDS: Carvedilol 6.25 MG TAB PO SCH (20:57)
[2022-01-15] MEDS: Atorvastatin Calcium 40 MG TAB PO SCH (20:58)
[2022-01-15] MEDS: hydrALAZINE 25 MG TAB PO SCH (20:58)
[2022-01-15] MEDS: Gabapentin 300 MG CAP PO SCH (20:58)
[2022-01-15] MEDS: Isosorbide Dinitrate 20 MG TAB PO SCH (20:58)
[2022-01-15] MEDS ORDERED: Azithromycin 500 MG in Sodium Chloride 0.9% 250 ML 250 ML IVPB SCH (21:00)
[2022-01-15] MEDS: methylPREDNISolone Sod Succ 40 MG VIAL IVP SCH (21:05)
[2022-01-15 22:31] LABS: Bacteria/HPF None Seen HPF (None Seen); Bilirubin Negative (Negative); Blood, Urine Negative (Negative); Clarity Clear (Clear); Glucose, Urine (Dipstick) Normal (Negative); Ketone, Urine Negative (Negative); Leukocyte Negative Leu/uL (Negative); Nitrite Negative (Negative); Protein, Urine (Dipstick) Negative (Neg-Trace); RBC/HPF None Seen HPF (0-3); Specific Gravity, Urine 1.009 (1.002-1.036); Squamous Epithelial None Seen HPF (0-3); Urobilinogen Normal mg/dL (Less than 2); WBC/HPF 0-3 HPF (0-3); pH, Urine 6.5 (5.0-9.0)
[2022-01-15 22:32] LABS: Urine Culture Reflex No No
[2022-01-15 23:24] LABS: Troponin I 0.126 ng/mL (< 0.028)
[2022-01-16 04:35] LABS: #Lymphocytes 0.6 thou/uL (1.20-3.40); #Monocytes 0.2 thou/uL (0.11-0.59); #Neutrophils 9.1 thou/uL (1.40-6.50); %Eosinophils 0.1 % (0.0-10.0); %Lymphocytes 5.8 % (21.0-51.0); %Monocytes 2.4 % (0.0-10.0); %Neutrophils 91.7 % (42.0-75.0); Hemoglobin 10.8 g/dL (14.0-18.0); Mean Corpuscular HGB CONC 32.7 g/dL (32.0-36.0); Mean Corpuscular Hemoglobin 36.5 pg (27.0-31.0); Mean Platelet Volume 6.7 fL (7.4-10.4); Platelet Count 212 thou/uL (130-400); Red Blood Cell (RBC) Count 2.96 mill/uL (4.70-6.10); White Blood Cell (WBC) Count 9.9 thou/uL (4.8-10.8)
[2022-01-16 05:06] LABS: Anion Gap 15 mmol/L (10-20); BUN (Urea Nitrogen) 42 mg/dL (8.4-25.7); Calc. Creatinine Clearance 21 mL/min (70-130); Calcium 8.9 mg/dL (7.8-10.44); Carbon Dioxide 25 mmol/L (23-31); Chloride 103 mmol/L (98-107); Glucose 176 mg/dL (83-110); Potassium 4.5 mmol/L (3.5-5.1); Sodium 138 mmol/L (136-145)
[2022-01-16] MEDS: Levothyroxine Sodium 25 MCG TAB PO SCH (05:49)
[2022-01-16] MEDS: Levothyroxine Sodium 112 MCG TAB PO SCH (05:49)
[2022-01-16] MEDS: methylPREDNISolone Sod Succ 40 MG VIAL IVP SCH (05:50)
[2022-01-16] MEDS: Aspirin 81 mg Enteric Coated Tablet PO SCH (08:39)
[2022-01-16] MEDS: Carvedilol 6.25 MG TAB PO SCH ×2 (08:39→20:24)
[2022-01-16] MEDS: Gabapentin 300 MG CAP PO SCH ×3 (08:40→20:24)
[2022-01-16] MEDS: hydrALAZINE 25 MG TAB PO SCH ×3 (08:40→20:24)
[2022-01-16] MEDS: Isosorbide Dinitrate 20 MG TAB PO SCH ×3 (08:40→20:25)
[2022-01-16] MEDS ORDERED: Furosemide 20 MG TAB PO SCH (09:00)
[2022-01-16] MEDS ORDERED: Enoxaparin Sodium 40 MG/0.4 ML SYRINGE SC SCH (09:00)
[2022-01-16 11:50] LABS: SARS-CoV-2 PCR by NAA Not Detected (NotDetected)
[2022-01-16] MEDS: Sodium Chloride 0.9% 1,000 ML IV SCH (15:01)
[2022-01-16] MEDS: Atorvastatin Calcium 40 MG TAB PO SCH (20:24)
[2022-01-16] MEDS ORDERED: Allopurinol 100 MG TAB PO SCH (22:15)
[2022-01-17 04:34] LABS: ALT (SGPT) 48 U/L (8-55); AST (SGOT) 48 U/L (5-34); Albumin 3.2 g/dL (3.4-4.8); Alkaline Phosphatase 91 U/L (40-110); Anion Gap 13 mmol/L (10-20); BUN (Urea Nitrogen) 64 mg/dL (8.4-25.7); Bilirubin, Total 0.3 mg/dL (0.2-1.2); Calc. Creatinine Clearance 21 mL/min (70-130); Calcium 8.9 mg/dL (7.8-10.44); Carbon Dioxide 26 mmol/L (23-31); Chloride 104 mmol/L (98-107); Globulin 2.5 g/dL (2.4-3.5); Glucose 181 mg/dL (83-110); Potassium 4.2 mmol/L (3.5-5.1); Protein, Total 5.7 g/dL (5.8-8.1); Sodium 139 mmol/L (136-145)
[2022-01-17] MEDS: Levothyroxine Sodium 112 MCG TAB PO SCH (05:43)
[2022-01-17] MEDS: Levothyroxine Sodium 25 MCG TAB PO SCH (05:43)
[2022-01-17] MEDS: Enoxaparin Sodium 30 MG/0.3 ML SYRINGE SC SCH (08:57)
[2022-01-17] MEDS: Carvedilol 6.25 MG TAB PO SCH ×2 (08:58→20:39)
[2022-01-17] MEDS: Aspirin 81 mg Enteric Coated Tablet PO SCH (08:58)
[2022-01-17] MEDS: predniSONE 20 MG TAB PO SCH (08:58)
[2022-01-17] MEDS: Allopurinol 100 MG TAB PO SCH (08:59)
[2022-01-17] MEDS: hydrALAZINE 25 MG TAB PO SCH ×3 (08:59→20:38)
[2022-01-17] MEDS: Isosorbide Dinitrate 20 MG TAB PO SCH ×3 (08:59→20:39)
[2022-01-17] MEDS: Gabapentin 300 MG CAP PO SCH ×3 (08:59→20:39)
[2022-01-17] MEDS: Sodium Chloride 0.9% 1,000 ML IV SCH (09:00)
[2022-01-17] MEDS ORDERED: methylPREDNISolone Sod Succ 40 MG VIAL IVP SCH (12:45)
[2022-01-17] MEDS: Polyethylene Glycol 3350 17 GM Packet PO PRN (15:00)
[2022-01-17] MEDS: Atorvastatin Calcium 40 MG TAB PO SCH (20:38)
[2022-01-17] MEDS: Azithromycin 250 MG TAB PO SCH (20:38)
[2022-01-18] MEDS: Levothyroxine Sodium 112 MCG TAB PO SCH (06:10)
[2022-01-18] MEDS: Levothyroxine Sodium 25 MCG TAB PO SCH (06:10)
[2022-01-18] MEDS: predniSONE 20 MG TAB PO SCH (08:56)
[2022-01-18] MEDS: Aspirin 81 mg Enteric Coated Tablet PO SCH (08:56)
[2022-01-18] MEDS: Isosorbide Dinitrate 20 MG TAB PO SCH ×3 (08:56→20:32)
[2022-01-18] MEDS: hydrALAZINE 25 MG TAB PO SCH ×3 (08:56→20:33)
[2022-01-18] MEDS: Gabapentin 300 MG CAP PO SCH ×3 (08:56→20:33)
[2022-01-18] MEDS: Allopurinol 100 MG TAB PO SCH (08:56)
[2022-01-18] MEDS: Carvedilol 6.25 MG TAB PO SCH ×2 (08:56→20:32)
[2022-01-18] MEDS: Enoxaparin Sodium 30 MG/0.3 ML SYRINGE SC SCH (08:57)
[2022-01-18] MEDS: Atorvastatin Calcium 40 MG TAB PO SCH (20:32)
[2022-01-18] MEDS: Azithromycin 250 MG TAB PO SCH (20:32)
[2022-01-19] MEDS: Levothyroxine Sodium 25 MCG TAB PO SCH (06:23)
[2022-01-19] MEDS: Levothyroxine Sodium 112 MCG TAB PO SCH (06:23)
[2022-01-19] MEDS: Allopurinol 100 MG TAB PO SCH (08:36)
[2022-01-19] MEDS: Isosorbide Dinitrate 20 MG TAB PO SCH ×3 (08:36→20:31)
[2022-01-19] MEDS: Gabapentin 300 MG CAP PO SCH ×3 (08:36→20:31)
[2022-01-19] MEDS: Carvedilol 6.25 MG TAB PO SCH ×2 (08:36→20:31)
[2022-01-19] MEDS: Aspirin 81 mg Enteric Coated Tablet PO SCH (08:37)
[2022-01-19] MEDS: Enoxaparin Sodium 30 MG/0.3 ML SYRINGE SC SCH (08:37)
[2022-01-19] MEDS: predniSONE 20 MG TAB PO SCH (08:37)
[2022-01-19] MEDS: hydrALAZINE 25 MG TAB PO SCH ×3 (08:37→20:39)
[2022-01-19] MEDS: Azithromycin 250 MG TAB PO SCH (20:31)
[2022-01-19] MEDS: Atorvastatin Calcium 40 MG TAB PO SCH (20:31)
[2022-01-20] MEDS: Levothyroxine Sodium 112 MCG TAB PO SCH (06:20)
[2022-01-20] MEDS: Levothyroxine Sodium 25 MCG TAB PO SCH (06:20)
[2022-01-20] MEDS: hydrALAZINE 25 MG TAB PO SCH ×3 (08:34→20:55)
[2022-01-20] MEDS: Gabapentin 300 MG CAP PO SCH ×3 (08:34→20:55)
[2022-01-20] MEDS: Aspirin 81 mg Enteric Coated Tablet PO SCH (08:34)
[2022-01-20] MEDS: Carvedilol 6.25 MG TAB PO SCH ×2 (08:34→20:56)
[2022-01-20] MEDS: Isosorbide Dinitrate 20 MG TAB PO SCH ×3 (08:34→20:56)
[2022-01-20] MEDS: Enoxaparin Sodium 30 MG/0.3 ML SYRINGE SC SCH (08:34)
[2022-01-20] MEDS: Allopurinol 100 MG TAB PO SCH (08:34)
[2022-01-20] MEDS: predniSONE 20 MG TAB PO SCH (08:34)
[2022-01-20] MEDS ORDERED: Furosemide 20 MG TAB PO SCH (10:30)
[2022-01-20] MEDS: Atorvastatin Calcium 40 MG TAB PO SCH (20:55)
[2022-01-20] MEDS: Azithromycin 250 MG TAB PO SCH (20:56)
[2022-01-21] MEDS: Levothyroxine Sodium 112 MCG TAB PO SCH (06:23)
[2022-01-21] MEDS: Levothyroxine Sodium 25 MCG TAB PO SCH (06:23)
[2022-01-21] MEDS: Aspirin 81 mg Enteric Coated Tablet PO SCH (08:48)
[2022-01-21] MEDS: Enoxaparin Sodium 30 MG/0.3 ML SYRINGE SC SCH (08:49)
[2022-01-21] MEDS: hydrALAZINE 25 MG TAB PO SCH ×2 (08:49→14:55)
[2022-01-21] MEDS: Carvedilol 6.25 MG TAB PO SCH (08:49)
[2022-01-21] MEDS: Isosorbide Dinitrate 20 MG TAB PO SCH ×2 (08:49→14:55)
[2022-01-21] MEDS: Gabapentin 300 MG CAP PO SCH ×2 (08:49→14:55)
[2022-01-21] MEDS: predniSONE 20 MG TAB PO SCH (08:49)
[2022-01-21] MEDS: Allopurinol 100 MG TAB PO SCH (08:49)
[2022-01-21] MEDS: Polyethylene Glycol 3350 17 GM Packet PO PRN (08:57)
[2022-01-21] MEDS ORDERED: Furosemide 20 MG TAB PO SCH (09:00)
[2022-01-21 11:37] VITALS: TEMP 97.5
[2022-01-21 14:55] VITALS: BP 126/62
== END 2022-01-21 15:28 | disposition home or self-care (01) | DRG 189 ==
LOC: ERS 14:17 → 2NO 17:23 → OBSVTOIN 01-16 13:33 → T4-A 01-19 15:00
PROVIDERS: ADMIT Internal Medicine; ATTEND Internal Medicine
DX: J96.21 Acute and chronic respiratory failure with hypoxia (principal); I13.0 Hypertensive heart and chronic kidney disease with heart failure and stage 1 through stage 4 chronic kidney disease, or unspecified chronic kidney disease; J44.1 Chronic obstructive pulmonary disease with (acute) exacerbation; N18.4 Chronic kidney disease, stage 4 (severe); N17.9 Acute kidney failure, unspecified; I50.22 Chronic systolic (congestive) heart failure; Z20.822 Contact with and (suspected) exposure to COVID-19; E78.5 Hyperlipidemia, unspecified; E03.9 Hypothyroidism, unspecified; E78.00 Pure hypercholesterolemia, unspecified; M54.9 Dorsalgia, unspecified; M89.29 Other disorders of bone development and growth, multiple sites; K21.9 Gastro-esophageal reflux disease without esophagitis; Z79.82 Long term (current) use of aspirin; Z79.899 Other long term (current) drug therapy; Z79.890 Hormone replacement therapy; Z79.51 Long term (current) use of inhaled steroids; Z87.891 Personal history of nicotine dependence; Z90.49 Acquired absence of other specified parts of digestive tract
CPT/HCPCS: 36415; 71045; 80048; 80053; 81001; 82553; 82565; 83880; 84484; 85025; 93005; 94640; 96365; 96367; 96372; 96374; 96375; 96376; G0378; J0456; J0696; J1650; J1940; J2920; J3490; J7050; J7512; J7620; U0003; U0005

== ENCOUNTER 2022-03-11 21:05 | Inpatient (IN) | payer OTHER ==
[2022-03-11 22:03] LABS: #Basophils 0.1 thou/uL (0.0-0.2); #Lymphocytes 1.4 thou/uL (1.20-3.40); #Monocytes 0.9 thou/uL (0.11-0.59); #Neutrophils 8.7 thou/uL (1.40-6.50); %Basophils 0.5 % (0.0-1.0); %Eosinophils 0.2 % (0.0-10.0); %Lymphocytes 12.5 % (21.0-51.0); %Neutrophils 78.8 % (42.0-75.0); Hemoglobin 10.7 g/dL (14.0-18.0); Mean Corpuscular Hemoglobin 36.8 pg (27.0-31.0); Mean Platelet Volume 6.6 fL (7.4-10.4); Platelet Count 185 thou/uL (130-400); RBC Distribution Width 14.7 % (11.5-14.5); Red Blood Cell (RBC) Count 2.91 mill/uL (4.70-6.10)
[2022-03-11 22:17] LABS: ALT (SGPT) 21 U/L (8-55); AST (SGOT) 37 U/L (5-34); Albumin 3.8 g/dL (3.4-4.8); Alkaline Phosphatase 70 U/L (40-110); Anion Gap 14 mmol/L (10-20); BUN (Urea Nitrogen) 32 mg/dL (8.4-25.7); Bilirubin, Total 0.7 mg/dL (0.2-1.2); Calc. Creatinine Clearance 0 mL/min (70-130); Calcium 9.4 mg/dL (7.8-10.44); Carbon Dioxide 28 mmol/L (23-31); Chloride 102 mmol/L (98-107); Globulin 2.2 g/dL (2.4-3.5); Glucose 112 mg/dL (83-110); Potassium 4.3 mmol/L (3.5-5.1); Sodium 140 mmol/L (136-145)
[2022-03-11] MEDS ORDERED: Aspirin Chewable 81 MG TAB ONE ×2 (22:45)
[2022-03-12] MEDS ORDERED: Furosemide 40 MG/4 ML VIAL SLOW IVP SCH (00:30)
[2022-03-12 01:28] LABS: Hemoglobin A1c 5.4 % (4.0-6.0)
[2022-03-12 01:35] LABS: Iron 81 ug/dL (65-175); Iron Binding Capacity, Total 273 mcg/dL (261-462)
[2022-03-12 01:36] LABS: Iron 81 ug/dL (65-175); Iron Binding Capacity, Total 276 mcg/dL (261-462); Magnesium 2.3 mg/dL (1.6-2.6); Phosphorus 3.9 mg/dL (2.3-4.7)
[2022-03-12 01:40] LABS: Troponin I 0.157 ng/mL (< 0.028)
[2022-03-12] MEDS ORDERED: Furosemide 40 MG/4 ML VIAL ONE (02:07)
[2022-03-12 03:58] LABS: Ferritin 246.8 ng/mL (22-322)
[2022-03-12 04:09] LABS: #Lymphocytes 1.2 thou/uL (1.20-3.40); #Monocytes 0.6 thou/uL (0.11-0.59); #Neutrophils 5.9 thou/uL (1.40-6.50); %Basophils 0.5 % (0.0-1.0); %Eosinophils 0.4 % (0.0-10.0); %Lymphocytes 15.7 % (21.0-51.0); %Monocytes 7.9 % (0.0-10.0); %Neutrophils 75.6 % (42.0-75.0); Hemoglobin 10.9 g/dL (14.0-18.0); Mean Corpuscular Hemoglobin 36.1 pg (27.0-31.0); Mean Platelet Volume 6.3 fL (7.4-10.4); Platelet Count 171 thou/uL (130-400); RBC Distribution Width 14.8 % (11.5-14.5); Red Blood Cell (RBC) Count 3.01 mill/uL (4.70-6.10); White Blood Cell (WBC) Count 7.8 thou/uL (4.8-10.8)
[2022-03-12] MEDS ORDERED: Acetaminophen 325 MG TAB ONE (04:26)
[2022-03-12 04:31] LABS: ALT (SGPT) 22 U/L (8-55); AST (SGOT) 36 U/L (5-34); Alkaline Phosphatase 69 U/L (40-110); Anion Gap 11 mmol/L (10-20); BUN (Urea Nitrogen) 32 mg/dL (8.4-25.7); Bilirubin, Total 0.7 mg/dL (0.2-1.2); Calc. Creatinine Clearance 0 mL/min (70-130); Calcium 9.8 mg/dL (7.8-10.44); Carbon Dioxide 33 mmol/L (23-31); Cardiac Risk 2.6 (Less than 4.5); Chloride 101 mmol/L (98-107); Cholesterol 114 mg/dl (< 200 Desired); Globulin 2.4 g/dL (2.4-3.5); Glucose 119 mg/dL (83-110); HDL Cholesterol 44 mg/dL (>60 Neg Risk); LDL Cholesterol, Calculated 54 mg/dL; Potassium 4.3 mmol/L (3.5-5.1); Protein, Total 6.4 g/dL (5.8-8.1); Sodium 141 mmol/L (136-145); Triglycerides 79 mg/dL (Less than 150)
[2022-03-12 04:35] LABS: Troponin I 0.166 ng/mL (< 0.028)
[2022-03-12] MEDS: Levothyroxine Sodium 25 MCG TAB PO SCH (05:55)
[2022-03-12] MEDS: Levothyroxine Sodium 112 MCG TAB PO SCH (05:55)
[2022-03-12 06:12] LABS: SARS-CoV-2 NAA Rapid Test Not Detected (NotDetected)
[2022-03-12] MEDS: Mometasone 200 MCG/Formoterol 5 MCG 120 PUFF INHALER INH SCH ×2 (07:28→19:59)
[2022-03-12 07:56] LABS: Troponin I 0.185 ng/mL (< 0.028)
[2022-03-12] MEDS: hydrALAZINE 25 MG TAB PO SCH ×3 (08:57→20:29)
[2022-03-12] MEDS: Heparin 5,000 UNITS/ML VIAL SC SCH ×3 (08:57→20:30)
[2022-03-12] MEDS: Aspirin 81 mg Enteric Coated Tablet PO SCH (08:57)
[2022-03-12] MEDS: Isosorbide Dinitrate 20 MG TAB PO SCH ×3 (08:57→20:30)
[2022-03-12 09:12] LABS: Macrocytosis SLIGHT = 6-15 cells (100X) (0-5/hpf); Polychromasia SLIGHT = 2-3 cells (100X) (0-2/hpf)
[2022-03-12 09:52] VITALS: BMI 23.6
[2022-03-12] MEDS ORDERED: Potassium Chloride 20 MEQ TAB PO SCH (12:00)
[2022-03-12] MEDS: Acetaminophen 325 MG TAB PO PRN ×2 (14:10→20:29)
[2022-03-12] MEDS: Furosemide 20 MG/2 ML VIAL SLOW IVP SCH (14:10)
[2022-03-12 20:35] VITALS: BP 143/72
[2022-03-12] MEDS ORDERED: DULoxetine 30 MG CAP PO SCH (21:00)
[2022-03-12] MEDS ORDERED: Atorvastatin Calcium 40 MG TAB PO SCH (21:00)
[2022-03-12] MEDS ORDERED: Aspirin/APAP/Caffeine Tab (Excedrin Migraine) PO SCH (23:00)
[2022-03-13 04:06] LABS: Anion Gap 12 mmol/L (10-20); BUN (Urea Nitrogen) 33 mg/dL (8.4-25.7); Calc. Creatinine Clearance 23 mL/min (70-130); Calcium 9.6 mg/dL (7.8-10.44); Carbon Dioxide 31 mmol/L (23-31); Chloride 99 mmol/L (98-107); Glucose 117 mg/dL (83-110); Potassium 4.2 mmol/L (3.5-5.1); Sodium 138 mmol/L (136-145)
[2022-03-13] MEDS: Furosemide 20 MG/2 ML VIAL SLOW IVP SCH (05:44)
[2022-03-13] MEDS: Levothyroxine Sodium 112 MCG TAB PO SCH (05:44)
[2022-03-13] MEDS: Levothyroxine Sodium 25 MCG TAB PO SCH (05:44)
[2022-03-13] MEDS: Mometasone 200 MCG/Formoterol 5 MCG 120 PUFF INHALER INH SCH (07:25)
[2022-03-13] MEDS ORDERED: Aspirin/APAP/Caffeine Tab (Excedrin Migraine) PO PRN (09:09)
[2022-03-13] MEDS: Isosorbide Dinitrate 20 MG TAB PO SCH (09:53)
[2022-03-13] MEDS: Aspirin 81 mg Enteric Coated Tablet PO SCH (09:53)
[2022-03-13] MEDS: hydrALAZINE 25 MG TAB PO SCH (09:54)
[2022-03-13] MEDS: Heparin 5,000 UNITS/ML VIAL SC SCH (09:54)
[2022-03-13 11:09] VITALS: TEMP 97.6
[2022-03-13] MEDS ORDERED: Carvedilol 3.125 MG TAB PO SCH (17:00)
[2022-03-14] MEDS ORDERED: Furosemide 40 MG TAB PO SCH (07:30)
== END 2022-03-13 12:10 | disposition home or self-care (01) | DRG 280 ==
LOC: ERS 21:05 → ERHOLD 23:05 → IMCU/EMU 03-12 08:18
PROVIDERS: ADMIT Family Medicine; ATTEND Family Medicine
DX: I13.0 Hypertensive heart and chronic kidney disease with heart failure and stage 1 through stage 4 chronic kidney disease, or unspecified chronic kidney disease (principal); I50.23 Acute on chronic systolic (congestive) heart failure; I21.A1 Myocardial infarction type 2; N18.4 Chronic kidney disease, stage 4 (severe); J96.11 Chronic respiratory failure with hypoxia; Z66 Do not resuscitate; Z20.822 Contact with and (suspected) exposure to COVID-19; J44.9 Chronic obstructive pulmonary disease, unspecified; E03.9 Hypothyroidism, unspecified; E78.2 Mixed hyperlipidemia; D63.1 Anemia in chronic kidney disease; E78.00 Pure hypercholesterolemia, unspecified; I71.4 Abdominal aortic aneurysm, without rupture; Z79.890 Hormone replacement therapy; Z87.891 Personal history of nicotine dependence; Z79.899 Other long term (current) drug therapy; Z79.82 Long term (current) use of aspirin; Z99.81 Dependence on supplemental oxygen; Z95.810 Presence of automatic (implantable) cardiac defibrillator; Z79.51 Long term (current) use of inhaled steroids
CPT/HCPCS: 36415; 71045; 76706; 80048; 80053; 80061; 82553; 82607; 82728; 82746; 83036; 83540; 83550; 83735; 83880; 84100; 84443; 84484; 85025; 85060; 93005; 93306; 94760; J1644; J1940; U0002

== ENCOUNTER 2022-06-26 12:24 | Inpatient (IN) | payer OTHER ==
[2022-06-26 13:17] LABS: #Eosinphils 0.5 thou/uL (0.0-0.7); #Lymphocytes 0.9 thou/uL (1.20-3.40); #Monocytes 0.9 thou/uL (0.11-0.59); #Neutrophils 7.1 thou/uL (1.40-6.50); %Basophils 0.5 % (0.0-1.0); %Eosinophils 4.9 % (0.0-10.0); %Lymphocytes 9.5 % (21.0-51.0); %Monocytes 9.2 % (0.0-10.0); Hemoglobin 6.2 g/dL (14.0-18.0); Mean Corpuscular Hemoglobin 35.3 pg (27.0-31.0); Mean Platelet Volume 6.3 fL (7.4-10.4); Platelet Count 270 thou/uL (130-400); RBC Distribution Width 13.4 % (11.5-14.5); Red Blood Cell (RBC) Count 1.77 mill/uL (4.70-6.10); White Blood Cell (WBC) Count 9.4 thou/uL (4.8-10.8)
[2022-06-26 13:35] LABS: MDiff Complete? YES; Macrocytosis SLIGHT = 6-15 cells (100X) (0-5/hpf); Ovalocytes SLIGHT = 2-5 cells (100X) (0-1/hpf); Platelet Morphology Comment Appears Adequate; Polychromasia SLIGHT = 2-3 cells (100X) (0-2/hpf)
[2022-06-26 13:37] LABS: ALT (SGPT) 20 U/L (8-55); AST (SGOT) 28 U/L (5-34); Albumin 3.5 g/dL (3.4-4.8); Alkaline Phosphatase 69 U/L (40-110); Anion Gap 17 mmol/L (10-20); BUN (Urea Nitrogen) 108 mg/dL (8.4-25.7); Bilirubin, Total 0.7 mg/dL (0.2-1.2); Calc. Creatinine Clearance 0 mL/min (70-130); Calcium 8.8 mg/dL (7.8-10.44); Carbon Dioxide 27 mmol/L (23-31); Chloride 96 mmol/L (98-107); Estimated GFR 22; Globulin 2.7 g/dL (2.4-3.5); Glucose 136 mg/dL (83-110); Lipase 31 U/L (8-78); Potassium 4.5 mmol/L (3.5-5.1); Protein, Total 6.2 g/dL (5.8-8.1); Sodium 135 mmol/L (136-145)
[2022-06-26 13:58] LABS: Bilirubin Negative (Negative); Blood, Urine Negative (Negative); Clarity Clear (Clear); Glucose, Urine (Dipstick) Normal (Negative); Ketone, Urine Negative (Negative); Leukocyte Negative Leu/uL (Negative); Nitrite Negative (Negative); Protein, Urine (Dipstick) Negative (Neg-Trace); Specific Gravity, Urine 1.017 (1.002-1.036); Urobilinogen Normal mg/dL (Less than 2)
[2022-06-26] MEDS ORDERED: Ondansetron PF 4 MG/2 ML Vial ONE (15:05)
[2022-06-26] MEDS ORDERED: Pantoprazole 40 MG VIAL ONE (15:06)
[2022-06-26] MEDS ORDERED: Pantoprazole 80 MG in Sodium Chloride 0.9% 100 ML IVPB SCH ×2 (15:15→18:45)
[2022-06-26 16:29] LABS: Troponin I 0.142 ng/mL (< 0.028)
[2022-06-26 19:11] VITALS: BMI 22.6
[2022-06-26 19:45] LABS: Troponin I 0.177 ng/mL (< 0.028)
[2022-06-26] MEDS ORDERED: Nitroglycerin 0.4 MG TAB (25 Tab Bottle) ONE (20:53)
[2022-06-26] MEDS ORDERED: Pantoprazole 40 MG VIAL IVP SCH (21:00)
[2022-06-26] MEDS ORDERED: DULoxetine 30 MG CAP PO SCH (21:00)
[2022-06-26] MEDS: Atorvastatin Calcium 40 MG TAB PO SCH (21:02)
[2022-06-26] MEDS: Nitroglycerin 0.4 MG TAB (25 Tab Bottle) SL PRN (21:05)
[2022-06-26 22:41] LABS: Hemoglobin 7.4 g/dL (14.0-18.0); Platelet Count 248 thou/uL (130-400)
[2022-06-26 23:29] LABS: Troponin I 0.332 ng/mL (< 0.028)
[2022-06-27] MEDS ORDERED: Heparin 25,000 units/D5W 500 ML IVPB SCH (00:30)
[2022-06-27] MEDS ORDERED: Heparin 10,000 UNITS/ 10 ML VIAL SLOW IVP SCH (00:30)
[2022-06-27] MEDS: Nitroglycerin 0.4 MG TAB (25 Tab Bottle) SL PRN (01:07)
[2022-06-27] MEDS ORDERED: Lactated Ringer's 500 ML IV SCH (01:15)
[2022-06-27 01:38] LABS: Hemoglobin 6.7 g/dL (14.0-18.0); Platelet Count 237 thou/uL (130-400)
[2022-06-27 02:39] LABS: Troponin I 0.535 ng/mL (< 0.028)
[2022-06-27 04:29] LABS: #Basophils 0.1 thou/uL (0.0-0.2); #Eosinphils 0.5 thou/uL (0.0-0.7); #Monocytes 0.9 thou/uL (0.11-0.59); #Neutrophils 8.8 thou/uL (1.40-6.50); %Basophils 0.5 % (0.0-1.0); %Eosinophils 4.5 % (0.0-10.0); %Lymphocytes 8.6 % (21.0-51.0); %Monocytes 8.1 % (0.0-10.0); %Neutrophils 78.3 % (42.0-75.0); Hemoglobin 7.6 g/dL (14.0-18.0); Mean Corpuscular HGB CONC 33.6 g/dL (32.0-36.0); Mean Corpuscular Hemoglobin 34.8 pg (27.0-31.0); Mean Platelet Volume 6.6 fL (7.4-10.4); Platelet Count 259 thou/uL (130-400); RBC Distribution Width 16.7 % (11.5-14.5); Red Blood Cell (RBC) Count 2.18 mill/uL (4.70-6.10); White Blood Cell (WBC) Count 11.2 thou/uL (4.8-10.8)
[2022-06-27 04:46] LABS: Anion Gap 19 mmol/L (10-20); BUN (Urea Nitrogen) 82 mg/dL (8.4-25.7); Calc. Creatinine Clearance 22 mL/min (70-130); Calcium 8.2 mg/dL (7.8-10.44); Carbon Dioxide 20 mmol/L (23-31); Chloride 104 mmol/L (98-107); Estimated GFR 27; Glucose 138 mg/dL (83-110); Potassium 4.9 mmol/L (3.5-5.1); Sodium 138 mmol/L (136-145)
[2022-06-27] MEDS ORDERED: Furosemide 20 MG/2 ML VIAL SLOW IVP SCH (06:00)
[2022-06-27] MEDS: Levothyroxine Sodium 125 MCG TAB PO SCH (06:06)
[2022-06-27] MEDS: Mometasone 200 MCG/Formoterol 5 MCG 120 PUFF INHALER INH SCH ×2 (07:14→18:36)
[2022-06-27 08:13] LABS: SARS-CoV-2 NAA Rapid Test Not Detected (NotDetected)
[2022-06-27] MEDS ORDERED: Azithromycin 500 MG in Sodium Chloride 0.9% 250 ML 250 ML IVPB SCH (10:15)
[2022-06-27 10:52] LABS: Hemoglobin 8.8 g/dL (14.0-18.0)
[2022-06-27] MEDS: Doxycycline 100 MG in Sodium Chloride 0.9% 100 ML IVPB SCH (13:45)
[2022-06-27] MEDS ORDERED: Carvedilol 3.125 MG TAB PO SCH (17:00)
[2022-06-27] MEDS: Carvedilol 3.125 MG TAB PO SCH (17:17)
[2022-06-27] MEDS: Atorvastatin Calcium 40 MG TAB PO SCH (20:34)
[2022-06-28 04:31] LABS: #Eosinphils 0.3 thou/uL (0.0-0.7); #Lymphocytes 0.8 thou/uL (1.20-3.40); #Monocytes 1.1 thou/uL (0.11-0.59); #Neutrophils 6.9 thou/uL (1.40-6.50); %Basophils 0.4 % (0.0-1.0); %Eosinophils 2.9 % (0.0-10.0); %Lymphocytes 9.1 % (21.0-51.0); %Monocytes 11.6 % (0.0-10.0); Hemoglobin 8.6 g/dL (14.0-18.0); Mean Corpuscular HGB CONC 34.2 g/dL (32.0-36.0); Mean Corpuscular Hemoglobin 34.9 pg (27.0-31.0); Platelet Count 235 thou/uL (130-400); RBC Distribution Width 16.8 % (11.5-14.5); Red Blood Cell (RBC) Count 2.45 mill/uL (4.70-6.10); White Blood Cell (WBC) Count 9.1 thou/uL (4.8-10.8)
[2022-06-28 04:54] LABS: ALT (SGPT) 24 U/L (8-55); AST (SGOT) 39 U/L (5-34); Albumin 3.1 g/dL (3.4-4.8); Alkaline Phosphatase 84 U/L (40-110); Anion Gap 14 mmol/L (10-20); BUN (Urea Nitrogen) 65 mg/dL (8.4-25.7); Calc. Creatinine Clearance 24 mL/min (70-130); Calcium 8.4 mg/dL (7.8-10.44); Carbon Dioxide 24 mmol/L (23-31); Chloride 104 mmol/L (98-107); Estimated GFR 30; Globulin 2.5 g/dL (2.4-3.5); Glucose 135 mg/dL (83-110); Potassium 4.6 mmol/L (3.5-5.1); Protein, Total 5.6 g/dL (5.8-8.1); Sodium 137 mmol/L (136-145)
[2022-06-28] MEDS: Levothyroxine Sodium 125 MCG TAB PO SCH (06:37)
[2022-06-28] MEDS: Mometasone 200 MCG/Formoterol 5 MCG 120 PUFF INHALER INH SCH ×2 (07:24→18:34)
[2022-06-28] MEDS: Furosemide 40 MG TAB PO SCH (08:22)
[2022-06-28] MEDS: Carvedilol 3.125 MG TAB PO SCH ×2 (08:22→16:35)
[2022-06-28] MEDS: Doxycycline 100 MG in Sodium Chloride 0.9% 100 ML IVPB SCH (10:33)
[2022-06-28 18:17] LABS: Hemoglobin 8.4 g/dL (14.0-18.0)
[2022-06-28] MEDS: Polyethylene Glycol 3350 17 GM Packet PO PRN (21:09)
[2022-06-28] MEDS: Atorvastatin Calcium 40 MG TAB PO SCH (21:09)
[2022-06-29 02:32] LABS: Hemoglobin 8.1 g/dL (14.0-18.0)
[2022-06-29] MEDS: Levothyroxine Sodium 125 MCG TAB PO SCH (05:52)
[2022-06-29] MEDS: Mometasone 200 MCG/Formoterol 5 MCG 120 PUFF INHALER INH SCH ×2 (06:51→19:28)
[2022-06-29 08:20] LABS: #Eosinphils 0.4 thou/uL (0.0-0.7); #Lymphocytes 1.1 thou/uL (1.20-3.40); #Monocytes 0.8 thou/uL (0.11-0.59); #Neutrophils 5.3 thou/uL (1.40-6.50); %Basophils 0.1 % (0.0-1.0); %Eosinophils 5.9 % (0.0-10.0); %Lymphocytes 14.4 % (21.0-51.0); %Monocytes 9.9 % (0.0-10.0); %Neutrophils 69.7 % (42.0-75.0); Hemoglobin 8.4 g/dL (14.0-18.0); Mean Corpuscular HGB CONC 32.9 g/dL (32.0-36.0); Mean Corpuscular Hemoglobin 34.1 pg (27.0-31.0); Mean Platelet Volume 6.5 fL (7.4-10.4); Platelet Count 227 thou/uL (130-400); RBC Distribution Width 16.3 % (11.5-14.5); Red Blood Cell (RBC) Count 2.46 mill/uL (4.70-6.10); White Blood Cell (WBC) Count 7.6 thou/uL (4.8-10.8)
[2022-06-29 08:41] LABS: Anion Gap 10 mmol/L (10-20); BUN (Urea Nitrogen) 55 mg/dL (8.4-25.7); Calc. Creatinine Clearance 27 mL/min (70-130); Calcium 8.5 mg/dL (7.8-10.44); Carbon Dioxide 28 mmol/L (23-31); Chloride 104 mmol/L (98-107); Estimated GFR 34; Glucose 126 mg/dL (83-110); Potassium 4.4 mmol/L (3.5-5.1); Sodium 138 mmol/L (136-145)
[2022-06-29] MEDS: Docusate 100 MG CAP PO SCH ×2 (09:00→20:34)
[2022-06-29] MEDS: Carvedilol 3.125 MG TAB PO SCH ×2 (09:00→17:25)
[2022-06-29] MEDS: Furosemide 40 MG TAB PO SCH (09:00)
[2022-06-29 10:23] LABS: Hemoglobin 8.5 g/dL (14.0-18.0)
[2022-06-29] MEDS: Polyethylene Glycol 3350 17 GM Packet PO PRN (11:38)
[2022-06-29] MEDS: Doxycycline 100 MG in Sodium Chloride 0.9% 100 ML IVPB SCH (11:38)
[2022-06-29 18:23] LABS: Hemoglobin 8.6 g/dL (14.0-18.0)
[2022-06-29] MEDS: Atorvastatin Calcium 40 MG TAB PO SCH (20:34)
[2022-06-30 04:55] LABS: #Eosinphils 0.6 thou/uL (0.0-0.7); #Lymphocytes 1.1 thou/uL (1.20-3.40); #Monocytes 0.8 thou/uL (0.11-0.59); #Neutrophils 5.6 thou/uL (1.40-6.50); %Basophils 0.1 % (0.0-1.0); %Eosinophils 7.9 % (0.0-10.0); %Lymphocytes 13.5 % (21.0-51.0); %Monocytes 9.3 % (0.0-10.0); %Neutrophils 69.2 % (42.0-75.0); Hemoglobin 8.2 g/dL (14.0-18.0); Mean Corpuscular Hemoglobin 35.4 pg (27.0-31.0); Mean Platelet Volume 6.8 fL (7.4-10.4); Platelet Count 265 thou/uL (130-400); RBC Distribution Width 16.2 % (11.5-14.5); Red Blood Cell (RBC) Count 2.32 mill/uL (4.70-6.10); White Blood Cell (WBC) Count 8.1 thou/uL (4.8-10.8)
[2022-06-30 05:13] LABS: Anion Gap 14 mmol/L (10-20); BUN (Urea Nitrogen) 48 mg/dL (8.4-25.7); Calc. Creatinine Clearance 29 mL/min (70-130); Calcium 8.6 mg/dL (7.8-10.44); Carbon Dioxide 23 mmol/L (23-31); Chloride 105 mmol/L (98-107); Estimated GFR 37; Glucose 135 mg/dL (83-110); Potassium 4.6 mmol/L (3.5-5.1); Sodium 137 mmol/L (136-145)
[2022-06-30] MEDS: Levothyroxine Sodium 125 MCG TAB PO SCH (05:20)
[2022-06-30] MEDS: Mometasone 200 MCG/Formoterol 5 MCG 120 PUFF INHALER INH SCH (06:48)
[2022-06-30] MEDS ORDERED: hydrALAZINE 25 MG TAB PO SCH (09:00)
[2022-06-30] MEDS ORDERED: Aspirin 81 mg Enteric Coated Tablet PO SCH (09:00)
[2022-06-30] MEDS: Furosemide 40 MG TAB PO SCH (10:18)
[2022-06-30] MEDS: Carvedilol 3.125 MG TAB PO SCH (10:18)
[2022-06-30] MEDS: Docusate 100 MG CAP PO SCH (10:18)
[2022-06-30] MEDS ORDERED: Doxycycline 100 MG CAP PO SCH (11:00)
[2022-06-30 11:07] VITALS: BP 128/56; TEMP 97.9
== END 2022-06-30 15:00 | disposition home or self-care (01) | DRG 377 ==
LOC: ERS 12:24 → ERHOLD 16:23 → 2NO 18:57
PROVIDERS: ADMIT Student in an Organized Health Care Education/Training Program; ATTEND Student in an Organized Health Care Education/Training Program
PROC: 30233N1 Transfusion of Nonautologous Red Blood Cells into Peripheral Vein, Percutaneous Approach (ICD-10-PCS; 2022-06-26)
PROC: 0W3P8ZZ Control Bleeding in Gastrointestinal Tract, Via Natural or Artificial Opening Endoscopic (ICD-10-PCS; principal; 2022-06-27)
DX: K31.811 Angiodysplasia of stomach and duodenum with bleeding (principal); I21.4 Non-ST elevation (NSTEMI) myocardial infarction; I13.0 Hypertensive heart and chronic kidney disease with heart failure and stage 1 through stage 4 chronic kidney disease, or unspecified chronic kidney disease; N17.9 Acute kidney failure, unspecified; I42.9 Cardiomyopathy, unspecified; I50.22 Chronic systolic (congestive) heart failure; J44.1 Chronic obstructive pulmonary disease with (acute) exacerbation; E78.00 Pure hypercholesterolemia, unspecified; E03.9 Hypothyroidism, unspecified; G89.29 Other chronic pain; K21.9 Gastro-esophageal reflux disease without esophagitis; K44.9 Diaphragmatic hernia without obstruction or gangrene; Z66 Do not resuscitate; N18.9 Chronic kidney disease, unspecified; F32.A Depression, unspecified; I44.7 Left bundle-branch block, unspecified; I35.0 Nonrheumatic aortic (valve) stenosis; Z20.822 Contact with and (suspected) exposure to COVID-19; I27.20 Pulmonary hypertension, unspecified; Z98.890 Other specified postprocedural states; Z87.891 Personal history of nicotine dependence; Z79.899 Other long term (current) drug therapy
CPT/HCPCS: 36415; 36430; 71045; 74176; 80048; 80053; 81003; 82553; 83605; 83690; 83880; 84484; 85014; 85018; 85025; 85730; 86850; 86900; 86901; 93005; 93010; 94640; C9113; J1644; J1940; J2405; J3490; J7120; J7620; P9016; U0002; U0003; U0005